=== PATIENT | female | born 1960 | race African-American/Black ===

== ENCOUNTER 2016-09-16 22:17 | Inpatient (IN) | payer OTHER ==
--- NOTE | 2016-09-16 23:56 | HP ---
CIWA Score - CIWA Score Nausea/Vomitin Muscle Tremors: 3 Anxiety: 3 Agitation: 3 Paroxysmal Sweats: 2 Orientation: 0-Oriented Tacttile Disturbances: 2-Mild Itch/Numbness/Burn Auditory Disturbances: 2-Mild Harshness/Frighten Visual Disturbances: 2-Mild Sensitivity Headache: 2-Mild CIWA-Ar Total Score: 22 Admission ROS BHS - HPI Chief Complaint: i need help to stop drinking alcohol and cocaine Allergies/Adverse Reactions: Allergies Allergy/AdvReac Type Severity Reaction Status Date / Time fish derived [Fish derived] Allergy Mild Hives Verified 09/17/16 02:26 No Known Drug Allergies Allergy Verified 09/17/16 02:26 NICOTINE PATCH Allergy Uncoded 09/17/16 02:26 History of Present Illness: this 56 years old female with alcohol and cocaine dependence,seeking detox,last treatment [facility] 11/16/15 to 11/20/15 syncope alcohol realted schizophrenia nicotine dependence glaucoma both eyes no significant period of sobriety - Ebola screening Have you traveled outside of the country in the last 21 days: No - Review of Systems Constitutional: Loss of Appetite, Malaise, Night Sweats, Changes in sleep, Weakness EENT: reports: Nose Congestion Respiratory: reports: No Symptoms reported Cardiac: reports: Palpitations GI: reports: Diarrhea, Nausea, Abdominal cramping : reports: No Symptoms Reported Musculoskeletal: reports: Back Pain, Muscle Pain Integumentary: reports: Dryness Neuro: reports: Headache, Tremors Endocrine: reports: No Symptoms Reported Hematology: reports: No Symptoms Reported Psychiatric: reports: Judgement Intact, Mood/Affect Appropiate, Orientated x3 ( schizophrenia) Patient History - Patient Medical History Hx Anemia: No Hx Asthma: Yes (Uses albuterol.) Hx Chronic Obstructive Pulmonary Disease (COPD): No Hx Cancer: No Hx Cardiac Disorders: No Hx Congestive Heart Failure: No Hx Hypertension: No Hx Hypercholesterolemia: No Hx Pacemaker: No HX Cerebrovascular Accident: No Hx Seizures: No Hx Dementia: No Hx Diabetes: No (Previous alcohol-related elevated blood sugar.) Hx Gastrointestinal Disorders: No Hx Liver Disease: No Hx Genitourinary Disorders: No Hx Sexually Transmitted Disorders: No Hx Renal Disease (ESRD): No Hx Thyroid Disease: No Hx Human Immunodeficiency Virus (HIV): No (last 04/03 negative) Hx Hepatitis C: No Hx Depression: Yes (On meds., See Psych.) Hx Suicide Attempt: No Hx Bipolar Disorder: No Hx Schizophrenia: Yes Other Medical History: no suicidal,no homicidal - Patient Surgical History Past Surgical History: Yes Hx Neurologic Surgery: No Hx Cataract Extraction: No Hx Cardiac Surgery: No Hx Lung Surgery: No Hx Breast Surgery: No Hx Breast Biopsy: No Hx Abdominal Surgery: No Hx Appendectomy: No Hx Cholecystectomy: No Hx Genitourinary Surgery: No Hx Section: Yes (X 3 IN 1984, 1997 AND 1998) Hx Orthopedic Surgery: No Hx Hysterectomy: No Anesthesia Reaction: No - PPD History Previous Implant?: Yes Documented Results: Positive w/o proof Date: 04/19/15 PPD to be Administered?: No - Reproductive History Patient is a Female of Child Bearing Age (11 -55 yrs old): Yes Last Menstrual Period: 10/16/14 Patient : No - Smoking Cessation Smoking history: Current every day smoker Have you smoked in the past 12 months: Yes Aproximately how many cigarettes per day: 6 Cigars Per Day: 0 Hx Chewing Tobacco Use: No Initiated information on smoking cessation: Yes 'Breaking Loose' booklet given: 09/17/16 - Substance & Tx. History Hx Alcohol Use: Yes Hx Substance Use: Yes Substance Use Type: Alcohol, Cocaine Hx Substance Use Treatment: Yes ([facility] 11/16/15 to 11/20/15) - Substances Abused Alcohol Route: Oral Frequency: Daily Amount used: 1/5th of vodka/2 of 6 packs of 12 ozs of beer Age of first use: 17 Date of Last Use: 09/16/16 Crack Route: Smoking Frequency: 3-6 times per week Amount used: 80$ Age of first use: 36 Date of Last Use: 09/17/16 Family Disease History - Family Disease History Family Disease History: Diabetes: Mother (HTN), Sister (bad drug problems), Heart Disease: Father (HTN,ALCOHOLIC), Mother, Other: Father, Sister Admission Physical Exam S - Vital Signs Vital Signs: Vital Signs Temperature 99.0 F 09/17/16 01:22 Pulse Rate 106 H 09/17/16 01:22 Respiratory Rate 20 09/17/16 01:22 Blood Pressure 135/92 09/17/16 01:22 O2 Sat by Pulse Oximetry (%) - Physical General Appearance: Yes: Moderate Distress, Tremorous, Irritable, Sweating, Anxious HEENTM: Yes: Hearing grossly Normal, Normal ENT Inspection, Pharynx Normal Respiratory: Yes: Lungs Clear, Normal Breath Sounds, No Respiratory Distress Neck: Yes: Within Normal Limits Breast: Yes: Breast Exam Deferred Cardiology: Yes: Within Normal Limits, Regular Rhythm, Regular Rate, S1, S2 Abdominal: Yes: Within Normal Limits, Normal Bowel Sounds, Flat, Soft, Increased Bowel Sounds Genitourinary: Yes: Within Normal Limits Back: Yes: Within Normal Limits Musculoskeletal: Yes: Back pain, Joint Stiffness, Muscle Pain Extremities: Yes: Within Normal Limits, Normal Range of Motion, Tremors Neurological: Yes: call center assistant II-XII NML intact, Fully Oriented, Alert, Motor Strength 5/5 Integumentary: Yes: Dry Lymphatic: Yes: Within Normal Limits - Diagnostic (1) Alcohol dependence with uncomplicated withdrawal Current Visit: No Status: Chronic (2) Asthma Current Visit: No Status: Chronic Qualifiers: Asthma severity: mild persistent Asthma complication type: uncomplicated Qualified Code(s): J45.30 - Mild persistent asthma, uncomplicated (3) Cocaine dependence Current Visit: No Status: Chronic (4) Glaucoma Current Visit: No Status: Chronic Qualifiers: Primary angle closure glaucoma type: unspecified type Laterality: bilateral Glaucoma stage: stage unspecified (5) Nicotine dependence Current Visit: No Status: Chronic Qualifiers: Nicotine product type: cigarettes Substance use status: uncomplicated Qualified Code(s): F17.210 - Nicotine dependence, cigarettes, uncomplicated (6) PPD positive, treated Current Visit: No Status: Chronic (7) Syncope Current Visit: Yes Status: Acute (8) Schizophrenia Current Visit: Yes Status: Acute Cleared for Admission [facility] - Detox or Rehab [facility] Level of Care: Medically Managed Detox Regimen/Protocol: Librium [facility] Breath Alcohol Content Breath Alcohol Content: 0.094 Vital Signs - Vital Signs Vital Signs Refused: No Temperature: 99.0 F Temperature Source: Oral Pulse Rate: 106 Respiratory Rate: 20 Blood Pressure: 135/92 BP Location: Left Arm Blood Pressure Position: Sitting - Height Height: 5 ft 7 in - Weight Weight: 185 lb Body Mass Index (BMI): 29.0 Urine Pregancy Test - Test Device Lot Number: [id number] Expiration Date: 01/14/18 - Control Horizontal Line in Upper Control Window?: Yes - Result Urine Test Results: Negative- NO Line Present Urine Drug Screen - Test Device Lot Number: [id number] Expiration Date: 05/15/18 - Control Is Test Valid: Yes - Results Drug Screen Negative: No Urine Drug Screen Results: MIHAELA-Cocaine, TCA-Tricyclic Antidepress
[2016-09-17 01:22] VITALS: BMI 29.0
[2016-09-17] MEDS ORDERED: ACETAMINOPHEN 325 MG TABLET (FP) PO PRN (01:24)
[2016-09-17] MEDS ORDERED: LOPERAMIDE HCL 2 MG CAPSULE PO PRN (01:24)
[2016-09-17] MEDS ORDERED: hydrOXYzine PAMOATE 50 MG CAPSULE (FP) PO PRN (01:24)
[2016-09-17] MEDS ORDERED: MAG HYDROX/AL HYDROX/SIMETH 30 ML UNIT-DOSE CUP PO PRN (01:24)
[2016-09-17] MEDS ORDERED: MAGNESIUM CITRATE 300 ML BOTTLE PO PRN (01:24)
[2016-09-17] MEDS ORDERED: guaiFENesin/D-METHORPHAN HB 10 ML UNIT-DOSE CUPS PO PRN (01:24)
[2016-09-17] MEDS ORDERED: chlordiazePOXIDE HCL 25 MG CAPSULE PO ONE (01:24)
[2016-09-17] MEDS ORDERED: MAGNESIUM HYDROX 2400MG/30ML ORAL SUSPENSION 30 ML CUP PO PRN (01:24)
[2016-09-17] MEDS ORDERED: chlordiazePOXIDE HCL 25 MG CAPSULE PO PRN (01:24)
[2016-09-17] MEDS ORDERED: IBUPROFEN 400 MG TABLET (FP) PO PRN (01:24)
[2016-09-17] MEDS ORDERED: P-EPHED 60MG/TRIPROLIDI 2.5MG TABLET PO PRN (01:24)
[2016-09-17] MEDS ORDERED: NICOTINE POLACRILEX 2 MG GUM BC PRN (01:24)
[2016-09-17] MEDS ORDERED: MENTHOL/PHENOL 1 EACH UD MM PRN (01:24)
[2016-09-17] MEDS ORDERED: ALBUTEROL SO4 6.7 GM HFA INHALER IH PRN (01:27)
[2016-09-17] MEDS: diphenhydrAMINE HCL 50 MG CAPSULE PO PRN (02:33)
[2016-09-17] MEDS: BRIMONIDINE TARTRATE 0.15% OPHTHALMIC 5 ML BOTTLE OU SCH ×3 (06:42→22:51)
[2016-09-17] MEDS: chlordiazePOXIDE HCL 25 MG CAPSULE PO SCH ×4 (08:06→22:45)
--- NOTE | 2016-09-17 08:58 | CONSULT ---
[facility] Psychiatric Consult - Data Date of interview: 09/17/16 Admission source: [facility] Identifying data: This is 56 years old female with history of Schizoaffective disorder intoxicated with: Alcohol, Cocaine and Nicotine Substance Abuse History: - Smoking Cessation. Smoking history: Current every day smoker. Have you smoked in the past 12 months: Yes. Aproximately how many cigarettes per day: 6. Cigars Per Day: 0. Hx Chewing Tobacco Use: No. Initiated information on smoking cessation: Yes. 'Breaking Loose' booklet given : 09/17/16. - Substance & Tx. History. Hx Alcohol Use: Yes. Hx Substance Use : Yes. Substance Use Type: Alcohol, Cocaine. Hx Substance Use Treatment: Yes ( [facility] 11/16/15 to 11/20/15). - Substances Abused. Alcohol. Route: Oral. Frequency: Daily. Amount used: 1/5th of vodka/2 of 6 packs of 12 ozs of beer. Age of first use: 17. Date of Last Use: 09/16/16. Crack. Route: Smoking. Frequency: 3-6 times per week. Amount used: 80$. Age of first use: 36. Date of Last Use: 09/17/16 Medical History: Syncope history, Asthma, PPD+ History, Weight loss, GERD Psychiatric History: Patient reprots to carry Schizoaffective disorder, reports most recent psychioatric admnission 6 months ago at [facility], reports taking prior to admission: Zoloft 100mg poqd. Seroquel 200mg po bid. Remeron 45mg po qhs. As per computer has been on Depakote as well in the past Physical/Sexual Abuse/Trauma History: Denies Additional Comment: Zoloft 100mg poqd. Seroquel 200mg po bid. Remeron 45mg po qhs Mental Status Exam - Mental Status Exam Alert and Oriented to: Person Cognitive Function: Fair Patient Appearance: Unkempt Mood: Anxious Affect: Labile Patient Behavior: Impulsive Speech Pattern: Excessive Voice Loudness: Mildly Loud Thought Process: Circumstantial Thought Disorder: Being Controlled Hallucinations: Denies Suicidal Ideation: Denies Homicidal Ideation: Denies Insight/Judgement: Fair Sleep: Difficulty falling asleep Appetite: Weight gain Muscle strength/Tone: Mild Hypotonicity Gait/Station: Normal Additional Comments: Zoloft 100mg poqd. Seroquel 200mg po bid. Remeron 45mg po qhs Psychiatric Findings - Problem List ([place] 1, 2,3) (1) Schizophrenia Current Visit: Yes Status: Acute (2) Substance induced mood disorder Current Visit: No Status: Acute (3) Substance-induced sleep disorder Current Visit: No Status: Acute (4) Alcohol dependence with uncomplicated withdrawal Current Visit: No Status: Chronic (5) Cocaine dependence Current Visit: No Status: Chronic (6) Nicotine dependence Current Visit: No Status: Chronic Qualifiers: Nicotine product type: cigarettes Substance use status: uncomplicated Qualified Code(s): F17.210 - Nicotine dependence, cigarettes, uncomplicated (7) Schizoaffective disorder Current Visit: No Status: Chronic Comment: Historical diagnosis. - Initial Treatment Plan Initial Treatment Plan: Zoloft 100mg poqd. Seroquel 200mg po bid. Remeron 45mg po qhs
[2016-09-17] MEDS ORDERED: BRIMONIDINE TARTRATE 0.15% OPHTHALMIC 5 ML BOTTLE OU ONE (10:00)
[2016-09-17 10:06] LABS: MCH 27.1 pg (25.7-33.7); MCHC 31.9 g/dl (32.0-36.0); MEAN CELL VOLUME 84.8 fl (80-96); MEAN PLT VOLUME 9.5 fl (7.5-11.1); PLATELET COUNT 232 K/MM3 (134-434); RDW 15.3 % (11.6-15.6); WHITE BLOOD COUNT 12.7 K/mm3 (4.0-10.0)
[2016-09-17 10:17] LABS: ALBUMIN 3.9 g/dl (3.4-5.0); ALK PHOS 171 U/L (45-117); ANION GAP 4 (8-16); BILIRUBIN,TOTAL 0.6 mg/dL (0.2-1.0); CALCIUM 9.8 mg/dL (8.5-10.1); CO2 32 mmol/L (21-32); CREATININE 0.9 mg/dL (0.55-1.02); GLUCOSE,RANDOM 134 mg/dL (74-106); SGOT/AST 10 U/L (15-37); SGPT/ALT 19 U/L (12-78); TOT PROT 7.4 g/dl (6.4-8.2)
[2016-09-17] MEDS: PRENATAL VITAMINS W/ FOLIC ACID TABLET (FP) PO SCH (10:55)
[2016-09-17] MEDS: QUEtiapine FUMARATE 200 MG TABLET PO SCH ×2 (10:56→22:45)
[2016-09-17] MEDS: SERTRALINE HCL 50 MG TABLET (FP) PO SCH (10:56)
--- NOTE | 2016-09-17 11:30 | EKG ---
Test Reason : Blood Pressure : / mmHG Vent. Rate : 095 BPM Atrial Rate : 095 BPM P-R Int : 116 ms QRS Dur : 086 ms QT Int : 364 ms P-R-T Axes : 000 142 116 degrees QTc Int : 457 ms NORMAL SINUS RHYTHM LEFT POSTERIOR FASCICULAR BLOCK MINIMAL VOLTAGE CRITERIA FOR LVH, MAY BE NORMAL VARIANT ABNORMAL ECG NO PREVIOUS ECGS AVAILABLE Confirmed by DANIELE LOVING, TIMOTHY ([id number]) on 09/17/2016 11:29:36 AM Referred By: Zafar Biggs Confirmed By:TIMOTHY SANABRIA MD
[2016-09-17] MEDS ORDERED: PNEUMOCOCCAL 23 VACCINE 0.5 ML VIAL IM ONE (12:00)
[2016-09-17] MEDS ORDERED: PNEUMOC 13-VAL CONJ-DIP CRM/PF 0.5 ML DISP.SYRIN IM ONE (12:00)
--- NOTE | 2016-09-17 12:10 | PN ---
S CIWA - CIWA Score Nausea/Vomitin-No Nausea/No Vomiting Muscle Tremors: 4-Moderate,w/Arms Extend Anxiety: 3 Agitation: 4-Moderately Restless Paroxysmal Sweats: 3 Orientation: 0-Oriented Tacttile Disturbances: 0-None Auditory Disturbances: 0-None Visual Disturbances: 0-None Headache: 1-Very Mild CIWA-Ar Total Score: 15 BHS Progress Note (SOAP) Subjective: sleepy sweats interrupted sleep agitation irritable Objective: 09/17/16 12:07 Vital Signs Temperature 97.2 09/17/16 10:00 Pulse Rate 79 09/17/16 10:00 Respiratory Rate 20 09/17/16 10:00 Blood Pressure 113/74 09/17/16 10:00 O2 Sat by Pulse Oximetry (%) Laboratory Tests 09/17/16 09/17/16 07:30 07:30 WBC 12.7 H D RBC 5.25 H Hgb 14.2 D Hct 44.6 D MCV 84.8 MCH 27.1 MCHC 31.9 L RDW 15.3 Plt Count 232 D MPV 9.5 Sodium 138 Potassium 4.7 Chloride 102 Carbon Dioxide 32 Anion Gap 4 L BUN 14 D Creatinine 0.9 D Creat Clearance w eGFR > 60 Random Glucose 134 H Calcium 9.8 Total Bilirubin 0.6 D AST 10 L D ALT 19 Alkaline Phosphatase 171 H D Total Protein 7.4 Albumin 3.9 labs pending awake/alert lying in bed no acute distress Assessment: 09/17/16 12:09 withdrawal sx Plan: continue detox increase fluids labs pending chest x-ray ordered for tomorrow
[2016-09-17] MEDS: THIAMINE HCL 100 MG TABLET (FP) PO SCH (22:45)
[2016-09-17] MEDS: MIRTAZAPINE 15 MG TABLET (FP) PO SCH (22:46)
[2016-09-17] MEDS: LATANOPROST 0.005% OPHTH SOLN 2.5ML BOTTLE OU SCH (22:51)
[2016-09-18] MEDS: chlordiazePOXIDE HCL 25 MG CAPSULE PO SCH ×4 (06:03→22:52)
[2016-09-18] MEDS: BRIMONIDINE TARTRATE 0.15% OPHTHALMIC 5 ML BOTTLE OU SCH ×4 (06:17→22:52)
[2016-09-18] MEDS ORDERED: PNEUMOCOCCAL 23 VACCINE 0.5 ML VIAL IM ONE (12:00)
--- NOTE | 2016-09-18 12:54 | PN ---
[facility] CIWA - CIWA Score Nausea/Vomitin-No Nausea/No Vomiting Muscle Tremors: 3 Anxiety: 2 Agitation: 3 Paroxysmal Sweats: 3 Orientation: 0-Oriented Tacttile Disturbances: 0-None Auditory Disturbances: 0-None Visual Disturbances: 0-None Headache: 0-None Present CIWA-Ar Total Score: 11 S Progress Note (SOAP) Subjective: irritable agitation sweats interrupted sleep Objective: 09/18/16 12:54 Vital Signs Temperature 96.1 F L 09/18/16 10:00 Pulse Rate 85 09/18/16 10:00 Respiratory Rate 18 09/18/16 10:00 Blood Pressure 102/55 09/18/16 10:00 O2 Sat by Pulse Oximetry (%) Laboratory Tests 09/17/16 09/17/16 09/17/16 07:30 07:30 07:30 WBC 12.7 H D RBC 5.25 H Hgb 14.2 D Hct 44.6 D MCV 84.8 MCH 27.1 MCHC 31.9 L RDW 15.3 Plt Count 232 D MPV 9.5 Sodium 138 Potassium 4.7 Chloride 102 Carbon Dioxide 32 Anion Gap 4 L BUN 14 D Creatinine 0.9 D Creat Clearance w eGFR > 60 Random Glucose 134 H Calcium 9.8 Total Bilirubin 0.6 D AST 10 L D ALT 19 Alkaline Phosphatase 171 H D Total Protein 7.4 Albumin 3.9 RPR Titer Nonreactive u/a pending awake/alert ambulating no acute distress Assessment: 09/18/16 12:56 withdrawal sx Plan: continue detox increase fluids
[2016-09-18] MEDS: SERTRALINE HCL 50 MG TABLET (FP) PO SCH (13:21)
[2016-09-18] MEDS: QUEtiapine FUMARATE 200 MG TABLET PO SCH ×2 (13:21→22:52)
[2016-09-18] MEDS: PRENATAL VITAMINS W/ FOLIC ACID TABLET (FP) PO SCH (13:22)
[2016-09-18 22:09] LABS: URINE APPEARANCE CLEAR; URINE BILIRUBIN NEGATIVE (NEGATIVE); URINE BLOOD NEGATIVE (NEGATIVE); URINE COLOR YELLOW; URINE GLUCOSE (UA) NEGATIVE (NEGATIVE); URINE KETONE NEGATIVE (NEGATIVE); URINE LEUK ESTERASE NEGATIVE (NEGATIVE); URINE NITRITE NEGATIVE (NEGATIVE); URINE PROTEIN NEGATIVE (NEGATIVE); URINE UROBILINOGEN NEGATIVE mg/dL (0.2-1.0)
[2016-09-18] MEDS: LATANOPROST 0.005% OPHTH SOLN 2.5ML BOTTLE OU SCH (22:52)
[2016-09-18] MEDS: MIRTAZAPINE 15 MG TABLET (FP) PO SCH (22:53)
[2016-09-18] MEDS: THIAMINE HCL 100 MG TABLET (FP) PO SCH (22:53)
[2016-09-19] MEDS: chlordiazePOXIDE 5 MG CAPSULE PO SCH ×4 (06:56→22:39)
[2016-09-19] MEDS: BRIMONIDINE TARTRATE 0.15% OPHTHALMIC 5 ML BOTTLE OU SCH ×3 (06:58→22:38)
[2016-09-19] MEDS: QUEtiapine FUMARATE 200 MG TABLET PO SCH ×2 (11:17→22:38)
[2016-09-19] MEDS: SERTRALINE HCL 50 MG TABLET (FP) PO SCH (11:17)
[2016-09-19] MEDS: PRENATAL VITAMINS W/ FOLIC ACID TABLET (FP) PO SCH (11:17)
--- NOTE | 2016-09-19 14:31 | PN ---
S Progress Note (SOAP) Subjective: ALERT,IRRITABLE,ANXIOUS,INTERRUPTED SLEEP, Objective: 09/19/16 14:30 Vital Signs Temperature 99.0 F 09/19/16 14:29 Pulse Rate 106 H 09/19/16 14:29 Respiratory Rate 20 09/19/16 14:29 Blood Pressure 135/92 09/19/16 14:29 O2 Sat by Pulse Oximetry (%) Assessment: 09/19/16 14:30 WITHDRAWAL SYMPTOM Plan: CONTINUE DETOX
[2016-09-19] MEDS: LATANOPROST 0.005% OPHTH SOLN 2.5ML BOTTLE OU SCH (22:38)
[2016-09-19] MEDS: MIRTAZAPINE 15 MG TABLET (FP) PO SCH (22:38)
[2016-09-19] MEDS: THIAMINE HCL 100 MG TABLET (FP) PO SCH (22:39)
[2016-09-20] MEDS: diphenhydrAMINE HCL 50 MG CAPSULE PO PRN (01:01)
[2016-09-20] MEDS: BRIMONIDINE TARTRATE 0.15% OPHTHALMIC 5 ML BOTTLE OU SCH ×3 (06:30→22:54)
[2016-09-20] MEDS: chlordiazePOXIDE HCL 10 MG CAPSULE PO SCH ×4 (06:30→22:54)
[2016-09-20] MEDS: QUEtiapine FUMARATE 200 MG TABLET PO SCH ×2 (10:45→22:56)
[2016-09-20] MEDS: SERTRALINE HCL 50 MG TABLET (FP) PO SCH (10:45)
[2016-09-20] MEDS: PRENATAL VITAMINS W/ FOLIC ACID TABLET (FP) PO SCH (10:45)
--- NOTE | 2016-09-20 14:05 | PN ---
S Progress Note (SOAP) Subjective: ALERT,IRRITABLE,INTERRUPTED SLEEP Objective: 09/20/16 14:04 Vital Signs Temperature 98.1 F 09/20/16 10:44 Pulse Rate 84 09/20/16 10:44 Respiratory Rate 20 09/20/16 10:44 Blood Pressure 125/85 09/20/16 10:44 O2 Sat by Pulse Oximetry (%) Assessment: 09/20/16 14:04 WITHDRAWAL SYMPTOM Plan: CONTINUE DETOX,DISCHARGE IN AM
[2016-09-20] MEDS: MIRTAZAPINE 15 MG TABLET (FP) PO SCH (22:55)
[2016-09-20] MEDS: LATANOPROST 0.005% OPHTH SOLN 2.5ML BOTTLE OU SCH (22:56)
[2016-09-20] MEDS: THIAMINE HCL 100 MG TABLET (FP) PO SCH (22:56)
[2016-09-21] MEDS: BRIMONIDINE TARTRATE 0.15% OPHTHALMIC 5 ML BOTTLE OU SCH (05:30)
--- NOTE | 2016-09-21 09:21 | DS ---
[facility] Detox Discharge Summary Admission Date: 09/17/16 Discharge Date: 09/21/16 - History Present History: Alcohol Dependence, Cocaine Dependence - Physical Exam Results Vital Signs: Vital Signs Temperature 98 F 09/21/16 06:44 Pulse Rate 80 09/21/16 06:44 Respiratory Rate 18 09/21/16 06:44 Blood Pressure 106/57 09/21/16 06:44 O2 Sat by Pulse Oximetry (%) - Treatment Hospital Course: Detox Protocol Followed, Detoxed Safely, Responded well, Discharged Condition Good, Rehab Referral Accepted - Medication Discharge Medications: Ambulatory Orders Quetiapine Fumarate [Seroquel -] 200 mg PO BID #60 04/18/15 Mirtazapine [Remeron -] 45 mg PO HS #30 tablet 06/06/15 Divalproex Sodium 1,000 mg PO BID 11/16/15 Sertraline HCl [Zoloft -] 100 mg PO DAILY 11/16/15 Albuterol Sulfate Inhaler - [Ventolin HFA Inhaler -] 2 puff IH Q4H PRN #1 cartridge 11/20/15 Brimonidine Tartrate [Alphagan 0.15% -] 1 drop OU TID #1 drops 11/20/15 Latanoprost 0.005% Eye Drops [Xalatan 0.005% Eye Drops -] 1 drop OU HS #1 drops 11/20/15 Mirtazapine [Remeron -] 45 mg PO HS #30 tablet 09/17/16 Quetiapine Fumarate [Seroquel -] 200 mg PO BID #60 tab 09/17/16 Sertraline HCl [Zoloft -] 100 mg PO DAILY #30 tablet 09/17/16 - Diagnosis (1) Schizophrenia Current Visit: Yes Status: Acute (2) Syncope Current Visit: Yes Status: Acute (3) Substance induced mood disorder Current Visit: No Status: Acute (4) Substance-induced sleep disorder Current Visit: No Status: Acute (5) Alcohol dependence with uncomplicated withdrawal Current Visit: Yes Status: Chronic (6) Asthma Current Visit: Yes Status: Chronic Qualifiers: Asthma severity: mild persistent Asthma complication type: uncomplicated Qualified Code(s): J45.30 - Mild persistent asthma, uncomplicated (7) Cocaine dependence Current Visit: Yes Status: Chronic (8) Glaucoma Current Visit: No Status: Chronic Qualifiers: Primary angle closure glaucoma type: unspecified type Laterality: bilateral Glaucoma stage: stage unspecified (9) Nicotine dependence Current Visit: Yes Status: Chronic Qualifiers: Nicotine product type: cigarettes Substance use status: uncomplicated Qualified Code(s): F17.210 - Nicotine dependence, cigarettes, uncomplicated (10) PPD positive, treated Current Visit: No Status: Chronic (11) Schizoaffective disorder Current Visit: No Status: Chronic (12) bipolar disorder Current Visit: No Status: Chronic - AMA Did Patient Leave Against Medical Advice: No
[2016-09-21] MEDS: QUEtiapine FUMARATE 200 MG TABLET PO SCH (09:32)
[2016-09-21] MEDS: SERTRALINE HCL 50 MG TABLET (FP) PO SCH (09:32)
[2016-09-21 09:34] VITALS: BP 150/88; PULSE 86; TEMP 97.9
== END 2016-09-21 11:38 | disposition home or self-care (01) | DRG 774 ==
LOC: YASAS 22:17 → Y6N 09-17 01:33
PROVIDERS: ADMIT Internal Medicine; ATTEND Internal Medicine
PROC: HZ2ZZZZ Detoxification Services for Substance Abuse Treatment (ICD-10-PCS; principal; 2016-09-17)
DX: F10.230 Alcohol dependence with withdrawal, uncomplicated (principal); F14.20 Cocaine dependence, uncomplicated; F17.210 Nicotine dependence, cigarettes, uncomplicated; F25.9 Schizoaffective disorder, unspecified; F20.0 Paranoid schizophrenia; F19.24 Other psychoactive substance dependence with psychoactive substance-induced mood disorder; F19.282 Other psychoactive substance dependence with psychoactive substance-induced sleep disorder; F31.9 Bipolar disorder, unspecified; J45.30 Mild persistent asthma, uncomplicated; H40.9 Unspecified glaucoma; R76.11 Nonspecific reaction to tuberculin skin test without active tuberculosis; Z86.79 Personal history of other diseases of the circulatory system
CPT/HCPCS: 36415; 71020-TC; 80053; 81003; 85027; 86593; 90732; 93005; 93010; G0009

== ENCOUNTER 2017-05-04 11:51 | Inpatient (IN) | payer OTHER ==
[2017-05-04 13:39] VITALS: BMI 30.7
--- NOTE | 2017-05-04 14:39 | HP ---
CIWA Score - CIWA Score Nausea/Vomitin-Mild Nausea/No Vomiting Muscle Tremors: 4-Moderate,w/Arms Extend Anxiety: 4-Mod. Anxious/Guarded Agitation: 4-Moderately Restless Paroxysmal Sweats: 1-Minimal Palms Moist Orientation: 1-Uncertain about Date Tacttile Disturbances: 1-Very Mild Itch/Numbness Auditory Disturbances: 0-None Visual Disturbances: 0-None Headache: 2-Mild CIWA-Ar Total Score: 18 Admission ROS S - HPI Chief Complaint: withdrawal sx Allergies/Adverse Reactions: Allergies Allergy/AdvReac Type Severity Reaction Status Date / Time fish derived [Fish derived] Allergy Mild Hives Verified 05/04/17 14:36 No Known Drug Allergies Allergy Verified 05/04/17 14:36 NICOTINE PATCH Allergy Severe Rash Uncoded 05/04/17 14:36 History of Present Illness: 57 years old female with long history of alcohol nicotine dependent has hypertension asthma chronic bronchitis positive ppd and schizophrenia is admitted to detox longest sobriety one years Exam Limitations: No Limitations - Ebola screening Have you traveled outside of the country in the last 21 days: No Have you had contact with anyone from an Ebola affected area: No Have you been sick,other than usual withdrawal symptoms: No Do you have a fever: No - Review of Systems Constitutional: Changes in sleep, Weight Stable EENT: reports: Blurred Vision (glaucoma bilaterally) Respiratory: reports: SOB with Exertion, Productive cough Cardiac: reports: No Symptoms Reported GI: reports: No Symptoms Reported : reports: No Symptoms Reported Musculoskeletal: reports: No Symptoms Reported, Muscle Weakness (both legs) Integumentary: reports: No Symptoms Reported Neuro: reports: Tremors Endocrine: reports: No Symptoms Reported Hematology: reports: No Symptoms Reported Psychiatric: reports: Judgement Intact, Anxious, Depressed Other Systems: Reviewed and Negative Patient History - Patient Medical History Hx Anemia: No Hx Asthma: Yes (Uses albuterol.) Hx Chronic Obstructive Pulmonary Disease (COPD): No Hx Cancer: No Hx Cardiac Disorders: No Hx Congestive Heart Failure: No Hx Hypertension: No Hx Hypercholesterolemia: No Hx Pacemaker: No HX Cerebrovascular Accident: No Hx Seizures: No Hx Dementia: No Hx Diabetes: No (Previous alcohol-related elevated blood sugar.) Hx Gastrointestinal Disorders: No Hx Liver Disease: No Hx Genitourinary Disorders: No Hx Sexually Transmitted Disorders: No Hx Renal Disease (ESRD): No Hx Thyroid Disease: No Hx Human Immunodeficiency Virus (HIV): No (last 04/03 negative) Hx Hepatitis C: No Hx Depression: Yes (On meds., See Psych.) Hx Suicide Attempt: No Hx Bipolar Disorder: No Hx Schizophrenia: Yes - Patient Surgical History Past Surgical History: Yes Hx Neurologic Surgery: No Hx Cataract Extraction: No Hx Cardiac Surgery: No Hx Lung Surgery: No Hx Breast Surgery: No Hx Breast Biopsy: No Hx Abdominal Surgery: No Hx Appendectomy: No Hx Cholecystectomy: No Hx Genitourinary Surgery: No Hx Section: Yes (X 3 IN 1984, 1997 AND 1998) Hx Orthopedic Surgery: No Hx Hysterectomy: No Anesthesia Reaction: No - PPD History Previous Implant?: Yes Documented Results: Positive w/proof Implanted On Prior [facility] Admission?: No Date: 10/04/16 PPD to be Administered?: No - Reproductive History Patient is a Female of Child Bearing Age (11 -55 yrs old): No Last Menstrual Period: 10/16/14 Patient : No - Smoking Cessation Smoking history: Current every day smoker Have you smoked in the past 12 months: Yes Aproximately how many cigarettes per day: 6 Cigars Per Day: 0 Hx Chewing Tobacco Use: No Initiated information on smoking cessation: Yes 'Breaking Loose' booklet given: 05/04/17 - Substance & Tx. History Hx Alcohol Use: Yes Hx Substance Use: Yes Substance Use Type: Cocaine Hx Substance Use Treatment: Yes (09/2016 [facility]) - Substances Abused Crack Route: Smoking Frequency: 1-2 times per week Amount used: $100 Age of first use: 36 Date of Last Use: 05/03/17 Alcohol-beer Route: Oral Frequency: Daily Amount used: 1-6 pk. Age of first use: 17 Date of Last Use: 05/04/17 Family Disease History - Family Disease History Family Disease History: Diabetes: Mother (HTN), Sister (bad drug problems), Heart Disease: Father (HTN,ALCOHOLIC), Mother, Other: Father, Sister Admission Physical Exam S - Vital Signs Vital Signs: Vital Signs - 24 hr 05/04/17 13:38 Temperature 96.1 F L Pulse Rate 86 Respiratory 20 Rate Blood Pressure 154/104 - Physical General Appearance: Yes: Appropriately Dressed, Moderate Distress, Obese, Tremorous, Irritable, Sweating, Anxious HEENTM: Yes: Hearing grossly Normal, Normal ENT Inspection, Normocephalic, Normal Voice Respiratory: Yes: Chest Non-Tender, No Respiratory Distress, No Accessory Muscle Use, Wheezing Neck: Yes: Supple, Trachea in good position Breast: Yes: Breasts Symetrical Cardiology: Yes: Regular Rhythm, Regular Rate, S1, S2 Abdominal: Yes: Non Tender, Soft Genitourinary: Yes: Within Normal Limits Back: Yes: CVA Tenderness (L) Musculoskeletal: Yes: full range of Motion, Gait Steady, Muscle weakness (both legs) Extremities: Yes: Non-Tender, Tremors Neurological: Yes: Alert, Motor Strength 5/5, Normal Response, Depressed Affect Integumentary: Yes: Warm Lymphatic: Yes: Within Normal Limits - Diagnostic (1) Schizophrenia Current Visit: Yes Status: Suspected Qualifiers: Schizophrenia type: unspecified Qualified Code(s): F20.9 - Schizophrenia, unspecified (2) Alcohol dependence with uncomplicated withdrawal Current Visit: Yes Status: Acute (3) Asthma Current Visit: Yes Status: Chronic Qualifiers: Asthma severity: mild Asthma complication type: uncomplicated (4) Glaucoma Current Visit: Yes Status: Chronic Qualifiers: Primary angle closure glaucoma type: unspecified type Laterality: bilateral Glaucoma stage: stage unspecified (5) Nicotine dependence Current Visit: Yes Status: Acute Qualifiers: Nicotine product type: cigarettes Substance use status: in withdrawal Qualified Code(s): F17.213 - Nicotine dependence, cigarettes, with withdrawal (6) PPD positive, treated Current Visit: No Status: Resolved Cleared for Admission [facility] - Detox or Rehab [facility] Level of Care: Medically Managed Detox Regimen/Protocol: Librium [facility] Breath Alcohol Content Breath Alcohol Content: 0.055 Urine Pregancy Test - Result Urine Test Results: Negative- NO Line Present Urine Drug Screen - Control Is Test Valid: Yes - Results Drug Screen Negative: No Urine Drug Screen Results: MIHAELA-Cocaine
[2017-05-04] MEDS ORDERED: MENTHOL/PHENOL 1 EACH UD MM PRN (14:45)
[2017-05-04] MEDS ORDERED: MAGNESIUM HYDROX 2400MG/30ML ORAL SUSPENSION 30 ML CUP PO PRN (14:45)
[2017-05-04] MEDS ORDERED: MAGNESIUM CITRATE 300 ML BOTTLE PO PRN (14:45)
[2017-05-04] MEDS ORDERED: LOPERAMIDE HCL 2 MG CAPSULE PO PRN (14:45)
[2017-05-04] MEDS ORDERED: NICOTINE POLACRILEX 2 MG GUM BC PRN (14:45)
[2017-05-04] MEDS ORDERED: ACETAMINOPHEN 325 MG TABLET (FP) PO PRN (14:45)
[2017-05-04] MEDS ORDERED: P-EPHED 60MG/TRIPROLIDI 2.5MG TABLET PO PRN (14:45)
[2017-05-04] MEDS ORDERED: MAG HYDROX/AL HYDROX/SIMETH 30 ML UNIT-DOSE CUP PO PRN (14:45)
[2017-05-04] MEDS ORDERED: chlordiazePOXIDE HCL 25 MG CAPSULE PO PRN (14:45)
[2017-05-04] MEDS ORDERED: guaiFENesin/D-METHORPHAN HB 10 ML UNIT-DOSE CUPS PO PRN (14:45)
[2017-05-04] MEDS ORDERED: ALBUTEROL SO4 18 GM HFA INHALER IH PRN (14:47)
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
[2017-05-04] MEDS ORDERED: cloNIDine HCL 0.1 MG TABLET PO ONE (19:08)
[2017-05-04] MEDS ORDERED: MIRTAZAPINE 15 MG TABLET (FP) PO SCH (22:00)
[2017-05-04] MEDS: THIAMINE HCL 100 MG TABLET (FP) PO SCH (22:17)
[2017-05-04] MEDS: BRIMONIDINE TARTRATE 0.15% OPHTHALMIC 5 ML BOTTLE OU SCH (22:18)
[2017-05-04] MEDS: QUEtiapine FUMARATE 200 MG TABLET PO SCH (22:19)
[2017-05-04] MEDS: NAPROXEN 500 MG TABLET (FP) PO PRN (22:19)
[2017-05-04] MEDS: MELATONIN 5 MG TABLETS PO SCH (22:19)
[2017-05-04] MEDS: MIRTAZAPINE 30 MG TABLET (FP) PO SCH (22:19)
[2017-05-04] MEDS: chlordiazePOXIDE HCL 25 MG CAPSULE PO SCH (22:19)
[2017-05-04] MEDS: LATANOPROST 0.005% OPHTH SOLN 2.5ML BOTTLE OU SCH (22:20)
[2017-05-05 01:43] LABS: URINE APPEARANCE CLEAR; URINE BILIRUBIN NEGATIVE (NEGATIVE); URINE BLOOD NEGATIVE (NEGATIVE); URINE COLOR STRAW; URINE GLUCOSE (UA) NEGATIVE (NEGATIVE); URINE KETONE NEGATIVE (NEGATIVE); URINE LEUK ESTERASE NEGATIVE (NEGATIVE); URINE NITRITE NEGATIVE (NEGATIVE); URINE PROTEIN NEGATIVE (NEGATIVE); URINE UROBILINOGEN NEGATIVE mg/dL (0.2-1.0)
[2017-05-05] MEDS: chlordiazePOXIDE HCL 25 MG CAPSULE PO SCH ×4 (06:03→23:07)
[2017-05-05] MEDS: BRIMONIDINE TARTRATE 0.15% OPHTHALMIC 5 ML BOTTLE OU SCH ×3 (06:03→23:08)
--- NOTE | 2017-05-05 09:51 | PN ---
[facility] CIWA - CIWA Score Nausea/Vomitin-Mild Nausea/No Vomiting Muscle Tremors: 4-Moderate,w/Arms Extend Anxiety: 4-Mod. Anxious/Guarded Agitation: 4-Moderately Restless Paroxysmal Sweats: 1-Minimal Palms Moist Orientation: 0-Oriented Tacttile Disturbances: 1-Very Mild Itch/Numbness Auditory Disturbances: 0-None Visual Disturbances: 0-None Headache: 0-None Present CIWA-Ar Total Score: 15 BHS Progress Note (SOAP) Subjective: sweat tremor anxiety restlessness gi upset sleeplessness Objective: 05/05/17 09:50 Vital Signs Temperature 97.2 F L 05/05/17 06:00 Pulse Rate 81 05/05/17 06:00 Respiratory Rate 18 05/05/17 06:00 Blood Pressure 109/74 05/05/17 06:00 O2 Sat by Pulse Oximetry (%) Laboratory Last Values Urine Color Straw 05/04/17 22:59 Urine Appearance Clear 05/04/17 22:59 Urine pH 5.0 (5.0-8.0) 05/04/17 22:59 Ur Specific [place] 1.004 (1.001-1.035) 05/04/17 22:59 Urine Protein Negative (NEGATIVE) 05/04/17 22:59 Urine Glucose (UA) Negative (NEGATIVE) 05/04/17 22:59 Urine Ketones Negative (NEGATIVE) 05/04/17 22:59 Urine Blood Negative (NEGATIVE) 05/04/17 22:59 Urine Nitrite Negative (NEGATIVE) 05/04/17 22:59 Urine Bilirubin Negative (NEGATIVE) 05/04/17 22:59 Urine Urobilinogen Negative mg/dL (0.2-1.0) 05/04/17 22:59 Ur Leukocyte Esterase Negative (NEGATIVE) 05/04/17 22:59 lab noted Assessment: 05/05/17 09:50 withdrawal sx Plan: continue detox
--- NOTE | 2017-05-05 09:59 | EKG ---
Test Reason : Blood Pressure : / mmHG Vent. Rate : 084 BPM Atrial Rate : 084 BPM P-R Int : 112 ms QRS Dur : 094 ms QT Int : 388 ms P-R-T Axes : 069 075 051 degrees QTc Int : 458 ms NORMAL SINUS RHYTHM RIGHT ATRIAL ENLARGEMENT MINIMAL VOLTAGE CRITERIA FOR LVH, MAY BE NORMAL VARIANT NONSPECIFIC ST ABNORMALITY ABNORMAL ECG WHEN COMPARED WITH ECG OF 17-SEP-2016 01:20, NONSPECIFIC T WAVE ABNORMALITY NO LONGER EVIDENT IN LATERAL LEADS Confirmed by DEO TADEO MD ([id number]) on 05/05/2017 9:59:09 AM Referred By: Confirmed By:DEO TADEO MD
[2017-05-05 10:11] LABS: HEMOGLOBIN 14.3 GM/dL (10.7-15.3); MCHC 32.6 g/dl (32.0-36.0); MEAN CELL VOLUME 86.1 fl (80-96); MEAN PLT VOLUME 10.1 fl (7.5-11.1); PLATELET COUNT 288 K/MM3 (134-434); RBC 5.11 M/mm3 (3.60-5.2); RDW 15.3 % (11.6-15.6); WHITE BLOOD COUNT 8.4 K/mm3 (4.0-10.0)
[2017-05-05 10:37] LABS: CHLORIDE 99 mmol/L (98-107); POTASSIUM 4.2 mmol/L (3.5-5.1); SODIUM 136 mmol/L (136-145)
[2017-05-05] MEDS: SERTRALINE HCL 50 MG TABLET (FP) PO SCH (10:42)
[2017-05-05] MEDS: PRENATAL VITAMINS W/ FOLIC ACID TABLET (FP) PO SCH (10:42)
[2017-05-05 10:46] LABS: ALBUMIN 4.6 g/dl (3.4-5.0); ALK PHOS 172 U/L (45-117); ANION GAP 11 (8-16); BILIRUBIN,TOTAL 0.6 mg/dL (0.2-1.0); BLOOD UREA NITROGEN 16 mg/dL (7-18); CALCIUM 9.4 mg/dL (8.5-10.1); CO2 26 mmol/L (21-32); CREATININE 0.8 mg/dL (0.55-1.02); GLUCOSE,RANDOM 86 mg/dL (74-106); SGOT/AST 19 U/L (15-37); SGPT/ALT 26 U/L (12-78); TOT PROT 8.2 g/dl (6.4-8.2)
--- NOTE | 2017-05-05 11:52 | EKG ---
Test Reason : Blood Pressure : / mmHG Vent. Rate : 073 BPM Atrial Rate : 073 BPM P-R Int : 130 ms QRS Dur : 096 ms QT Int : 408 ms P-R-T Axes : 060 075 057 degrees QTc Int : 449 ms NORMAL SINUS RHYTHM NORMAL ECG WHEN COMPARED WITH ECG OF 04-MAY-2017 17:02, NO SIGNIFICANT CHANGE WAS FOUND Confirmed by EUGENIO GUZMAN MD ([id number]) on 05/05/2017 11:52:13 AM Referred By: Confirmed By:EUGENIO GUZMAN MD
[2017-05-05] MEDS: THIAMINE HCL 100 MG TABLET (FP) PO SCH (23:07)
[2017-05-05] MEDS: NAPROXEN 500 MG TABLET (FP) PO PRN (23:07)
[2017-05-05] MEDS: LATANOPROST 0.005% OPHTH SOLN 2.5ML BOTTLE OU SCH (23:07)
[2017-05-05] MEDS: MIRTAZAPINE 30 MG TABLET (FP) PO SCH (23:07)
[2017-05-05] MEDS: QUEtiapine FUMARATE 200 MG TABLET PO SCH (23:07)
[2017-05-05] MEDS: MELATONIN 5 MG TABLETS PO SCH (23:18)
[2017-05-06] MEDS: BRIMONIDINE TARTRATE 0.15% OPHTHALMIC 5 ML BOTTLE OU SCH ×3 (06:53→23:00)
[2017-05-06] MEDS: chlordiazePOXIDE HCL 25 MG CAPSULE PO SCH ×3 (06:53→17:36)
[2017-05-06] MEDS: QUEtiapine FUMARATE 100 MG TABLET (FP) PO SCH (07:36)
[2017-05-06] MEDS ORDERED: SERTRALINE HCL 50 MG TABLET (FP) PO SCH (10:00)
--- NOTE | 2017-05-06 11:10 | PN ---
[facility] CIWA - CIWA Score Nausea/Vomitin-Mild Nausea/No Vomiting Muscle Tremors: 4-Moderate,w/Arms Extend Anxiety: 4-Mod. Anxious/Guarded Agitation: 4-Moderately Restless Paroxysmal Sweats: 1-Minimal Palms Moist Orientation: 0-Oriented Tacttile Disturbances: 0-None Auditory Disturbances: 0-None Visual Disturbances: 0-None Headache: 0-None Present CIWA-Ar Total Score: 14 BHS Progress Note (SOAP) Subjective: sweat tremor anxiety restlessness mild nausea sleeplessness Objective: 05/06/17 11:10 Vital Signs Temperature 99.0 F 05/06/17 10:00 Pulse Rate 81 05/06/17 10:00 Respiratory Rate 18 05/06/17 10:00 Blood Pressure 117/66 05/06/17 10:00 O2 Sat by Pulse Oximetry (%) Laboratory Last Values WBC 8.4 K/mm3 (4.0-10.0) D 05/05/17 06:00 RBC 5.11 M/mm3 (3.60-5.2) 05/05/17 06:00 Hgb 14.3 GM/dL (10.7-15.3) 05/05/17 06:00 Hct 44.0 % (32.4-45.2) 05/05/17 06:00 MCV 86.1 fl (80-96) 05/05/17 06:00 MCH 28.0 pg (25.7-33.7) 05/05/17 06:00 MCHC 32.6 g/dl (32.0-36.0) 05/05/17 06:00 RDW 15.3 % (11.6-15.6) 05/05/17 06:00 Plt Count 288 K/MM3 (134-434) D 05/05/17 06:00 MPV 10.1 fl (7.5-11.1) 05/05/17 06:00 Sodium 136 mmol/L (136-145) 05/05/17 06:00 Potassium 4.2 mmol/L (3.5-5.1) 05/05/17 06:00 Chloride 99 mmol/L (98-107) 05/05/17 06:00 Carbon Dioxide 26 mmol/L (21-32) 05/05/17 06:00 Anion Gap 11 (8-16) 05/05/17 06:00 BUN 16 mg/dL (7-18) 05/05/17 06:00 Creatinine 0.8 mg/dL (0.55-1.02) 05/05/17 06:00 Creat Clearance w eGFR > 60 (>60) 05/05/17 06:00 Random Glucose 86 mg/dL (74-106) 05/05/17 06:00 Calcium 9.4 mg/dL (8.5-10.1) 05/05/17 06:00 Total Bilirubin 0.6 mg/dL (0.2-1.0) 05/05/17 06:00 AST 19 U/L (15-37) 05/05/17 06:00 ALT 26 U/L (12-78) 05/05/17 06:00 Alkaline Phosphatase 172 U/L (45-117) H 05/05/17 06:00 Total Protein 8.2 g/dl (6.4-8.2) 05/05/17 06:00 Albumin 4.6 g/dl (3.4-5.0) 05/05/17 06:00 Urine Color Straw 05/04/17 22:59 Urine Appearance Clear 05/04/17 22:59 Urine pH 5.0 (5.0-8.0) 05/04/17 22:59 Ur Specific [place] 1.004 (1.001-1.035) 05/04/17 22:59 Urine Protein Negative (NEGATIVE) 05/04/17 22:59 Urine Glucose (UA) Negative (NEGATIVE) 05/04/17 22:59 Urine Ketones Negative (NEGATIVE) 05/04/17 22:59 Urine Blood Negative (NEGATIVE) 05/04/17 22:59 Urine Nitrite Negative (NEGATIVE) 05/04/17 22:59 Urine Bilirubin Negative (NEGATIVE) 05/04/17 22:59 Urine Urobilinogen Negative mg/dL (0.2-1.0) 05/04/17 22:59 Ur Leukocyte Esterase Negative (NEGATIVE) 05/04/17 22:59 RPR Titer Nonreactive (NONREACTIVE) 05/05/17 06:00 lab noted Assessment: 05/06/17 11:10 withdrawal sx Plan: continue detox
[2017-05-06] MEDS: PRENATAL VITAMINS W/ FOLIC ACID TABLET (FP) PO SCH (11:19)
[2017-05-06] MEDS: SERTRALINE HCL 50 MG TABLET (FP) PO SCH (11:19)
[2017-05-06] MEDS: NAPROXEN 500 MG TABLET (FP) PO PRN ×2 (11:21→23:00)
[2017-05-06] MEDS: LATANOPROST 0.005% OPHTH SOLN 2.5ML BOTTLE OU SCH (22:59)
[2017-05-06] MEDS: MIRTAZAPINE 30 MG TABLET (FP) PO SCH (23:00)
[2017-05-06] MEDS: QUEtiapine FUMARATE 200 MG TABLET PO SCH (23:00)
[2017-05-06] MEDS: chlordiazePOXIDE 5 MG CAPSULE PO SCH (23:00)
[2017-05-06] MEDS: THIAMINE HCL 100 MG TABLET (FP) PO SCH (23:00)
[2017-05-06] MEDS: MELATONIN 5 MG TABLETS PO SCH (23:11)
[2017-05-07] MEDS: chlordiazePOXIDE 5 MG CAPSULE PO SCH ×3 (05:52→17:24)
[2017-05-07] MEDS: BRIMONIDINE TARTRATE 0.15% OPHTHALMIC 5 ML BOTTLE OU SCH ×3 (05:54→22:45)
[2017-05-07] MEDS: QUEtiapine FUMARATE 100 MG TABLET (FP) PO SCH (06:11)
--- NOTE | 2017-05-07 09:12 | PN ---
BHS Progress Note (SOAP) Subjective: interrupted sleep,decreased appetite Objective: 05/07/17 09:11 Vital Signs Temperature 97.7 F 05/07/17 06:31 Pulse Rate 78 05/07/17 06:31 Respiratory Rate 20 05/07/17 06:31 Blood Pressure 130/89 05/07/17 06:31 O2 Sat by Pulse Oximetry (%) Laboratory Tests 05/04/17 05/05/17 05/05/17 22:59 06:00 06:00 WBC 8.4 D RBC 5.11 Hgb 14.3 Hct 44.0 MCV 86.1 MCH 28.0 MCHC 32.6 RDW 15.3 Plt Count 288 D MPV 10.1 Sodium 136 Potassium 4.2 Chloride 99 Carbon Dioxide 26 Anion Gap 11 BUN 16 Creatinine 0.8 Creat Clearance w eGFR > 60 Random Glucose 86 Calcium 9.4 Total Bilirubin 0.6 AST 19 ALT 26 Alkaline Phosphatase 172 H Total Protein 8.2 Albumin 4.6 Urine Color Straw Urine Appearance Clear Urine pH 5.0 Ur Specific [place] 1.004 Urine Protein Negative Urine Glucose (UA) Negative Urine Ketones Negative Urine Blood Negative Urine Nitrite Negative Urine Bilirubin Negative Urine Urobilinogen Negative Ur Leukocyte Esterase Negative RPR Titer 05/05/17 06:00 WBC RBC Hgb Hct MCV MCH MCHC RDW Plt Count MPV Sodium Potassium Chloride Carbon Dioxide Anion Gap BUN Creatinine Creat Clearance w eGFR Random Glucose Calcium Total Bilirubin AST ALT Alkaline Phosphatase Total Protein Albumin Urine Color Urine Appearance Urine pH Ur Specific [place] Urine Protein Urine Glucose (UA) Urine Ketones Urine Blood Urine Nitrite Urine Bilirubin Urine Urobilinogen Ur Leukocyte Esterase RPR Titer Nonreactive pt aox3 in nad ambulating Assessment: 05/07/17 09:11 withdrawal sx's Plan: cont. detox increase fluids n d/c in am ensure bid
[2017-05-07] MEDS: PRENATAL VITAMINS W/ FOLIC ACID TABLET (FP) PO SCH (11:55)
[2017-05-07] MEDS: SERTRALINE HCL 50 MG TABLET (FP) PO SCH (11:55)
[2017-05-07] MEDS: LATANOPROST 0.005% OPHTH SOLN 2.5ML BOTTLE OU SCH (22:46)
[2017-05-07] MEDS: QUEtiapine FUMARATE 200 MG TABLET PO SCH (22:46)
[2017-05-07] MEDS: chlordiazePOXIDE HCL 10 MG CAPSULE PO SCH (22:46)
[2017-05-07] MEDS: THIAMINE HCL 100 MG TABLET (FP) PO SCH (22:46)
[2017-05-07] MEDS: MELATONIN 5 MG TABLETS PO SCH (22:46)
[2017-05-07] MEDS: MIRTAZAPINE 30 MG TABLET (FP) PO SCH (22:46)
[2017-05-08] MEDS: chlordiazePOXIDE HCL 10 MG CAPSULE PO SCH (05:52)
[2017-05-08] MEDS: BRIMONIDINE TARTRATE 0.15% OPHTHALMIC 5 ML BOTTLE OU SCH (05:53)
[2017-05-08] MEDS: QUEtiapine FUMARATE 100 MG TABLET (FP) PO SCH (06:45)
[2017-05-08 09:54] VITALS: BP 144/76; PULSE 69; TEMP 97.9
--- NOTE | 2017-05-08 15:52 | PN ---
S Progress Note (SOAP) Subjective: 05/08/17 14:58 feels okay no new complaint Objective: A & O x 3 ambulates with a chair not in distress Vital Signs Temperature 97.9 F 05/08/17 09:53 Pulse Rate 69 05/08/17 09:53 Respiratory Rate 16 05/08/17 09:53 Blood Pressure 144/76 05/08/17 09:53 O2 Sat by Pulse Oximetry (%) Assessment: 05/08/17 15:51 detox successfully completed Plan: for discharge
--- NOTE | 2017-05-08 15:57 | DS ---
[facility] Detox Discharge Summary Admission Date: 05/04/17 Discharge Date: 05/08/17 - History Additional Comments: Pt for discharge states she will do outpatient rehab and AA meetings Pertinent Past History: htn asthma glaucoma Bronchitis - Physical Exam Results Vital Signs: Vital Signs Temperature 97.9 F 05/08/17 09:53 Pulse Rate 69 05/08/17 09:53 Respiratory Rate 16 05/08/17 09:53 Blood Pressure 144/76 05/08/17 09:53 O2 Sat by Pulse Oximetry (%) Pertinent Admission Physical Exam Findings: withdrawal sx - Treatment Hospital Course: Detox Protocol Followed, Detoxed Safely, Responded well, Discharged Condition Good Patient has Accepted a Rehab Referral to: O/P rehab at [facility] - Medication Discharge Medications: Ambulatory Orders Mirtazapine [Remeron -] 45 mg PO HS #30 tablet 06/06/15 Sertraline HCl [Zoloft -] 200 mg PO DAILY 11/16/15 Albuterol Sulfate Inhaler - [Ventolin HFA Inhaler -] 2 puff IH Q4H PRN #1 cartridge 11/20/15 Brimonidine Tartrate [Alphagan 0.15% -] 1 drop OU TID #1 drops 11/20/15 Latanoprost 0.005% Eye Drops [Xalatan 0.005% Eye Drops -] 1 drop OU HS #1 drops 11/20/15 Naproxen [Naprosyn] 500 mg PO DAILY 05/04/17 Quetiapine Fumarate [Seroquel -] 200 mg PO AM 05/04/17 Quetiapine Fumarate [Seroquel -] 400 mg PO HS 05/04/17 Albuterol Sulfate Inhaler - [Ventolin HFA Inhaler -] 2 puff IH Q4H PRN #1 inhaler 05/07/17 Brimonidine Tartrate [Alphagan 0.15% -] 1 drop OU TID #1 drops 05/07/17 Latanoprost 0.005% Eye Drops [Xalatan 0.005% Eye Drops -] 1 drop OU HS #1 drops 05/07/17 - Diagnosis (1) Alcohol dependence with uncomplicated withdrawal Status: Acute (2) Nicotine dependence Status: Chronic Qualifiers: Nicotine product type: cigarettes Substance use status: in withdrawal Qualified Code(s): F17.213 - Nicotine dependence, cigarettes, with withdrawal (3) Substance induced mood disorder Status: Chronic (4) Substance-induced sleep disorder Status: Chronic (5) Walker as ambulation aid Status: Acute (6) Asthma Status: Chronic Qualifiers: Asthma severity: mild Asthma complication type: uncomplicated (7) Cocaine dependence Status: Chronic (8) Glaucoma Status: Acute Qualifiers: Primary angle closure glaucoma type: unspecified type Laterality: bilateral Glaucoma stage: stage unspecified - AMA Did Patient Leave Against Medical Advice: No
== END 2017-05-08 10:15 | disposition home or self-care (01) | DRG 774 ==
LOC: YASAS 11:51 → Y6N 15:36
PROVIDERS: ADMIT Internal Medicine; ATTEND Internal Medicine
PROC: HZ2ZZZZ Detoxification Services for Substance Abuse Treatment (ICD-10-PCS; principal; 2017-05-04)
DX: F10.230 Alcohol dependence with withdrawal, uncomplicated (principal); F14.20 Cocaine dependence, uncomplicated; F17.213 Nicotine dependence, cigarettes, with withdrawal; F19.24 Other psychoactive substance dependence with psychoactive substance-induced mood disorder; F19.282 Other psychoactive substance dependence with psychoactive substance-induced sleep disorder; F25.9 Schizoaffective disorder, unspecified; I10 Essential (primary) hypertension; J45.20 Mild intermittent asthma, uncomplicated; H40.89 Other specified glaucoma; R76.11 Nonspecific reaction to tuberculin skin test without active tuberculosis
CPT/HCPCS: 36415; 80053; 81003; 85027; 86593; 93005; 93010; J0735

== ENCOUNTER 2017-07-20 13:21 | Inpatient (IN) | payer OTHER ==
[2017-07-20 15:01] VITALS: BMI 30.9
--- NOTE | 2017-07-20 17:33 | HP ---
CIWA Score - CIWA Score Nausea/Vomitin-No Nausea/No Vomiting Muscle Tremors: 3 Anxiety: 3 Agitation: 4-Moderately Restless Paroxysmal Sweats: 2 Orientation: 0-Oriented Tacttile Disturbances: 0-None Auditory Disturbances: 0-None Visual Disturbances: 1-Very Mild Sensitivity Headache: 1-Very Mild CIWA-Ar Total Score: 14 Admission ROS S - HPI Chief Complaint: alcohol withdrawal symptoms Allergies/Adverse Reactions: Allergies Allergy/AdvReac Type Severity Reaction Status Date / Time fish derived [Fish derived] Allergy Mild Hives Verified 07/20/17 16:39 No Known Drug Allergies Allergy Verified 07/20/17 16:39 NICOTINE PATCH Allergy Severe Rash Uncoded 07/20/17 16:39 History of Present Illness: 57 years old female with long history of alcohol, nicotine, crack/cocaine dependence is here seeking detox. PMHX: hypertension, asthma, chronic bronchitis, positive ppd, early liver cirrhosis and schizophrenia. Denies suicidal / homicidal ideation. Denies auditory or visual hallucinations. Denies hx of seizures, reports frequent alcohol related black outs with last episode a month ago. Last detox at [facility] 05/04/17 -05/08/17. Longest period of sobriety 16 months. Exam Limitations: No Limitations - Ebola screening Have you traveled outside of the country in the last 21 days: No (N) Have you had contact with anyone from an Ebola affected area: No Have you been sick,other than usual withdrawal symptoms: No Do you have a fever: No - Review of Systems Constitutional: Chills (" I can't eat"), Loss of Appetite, Changes in sleep ( seroquel for sleep) EENT: reports: Dental Problems (missing teeth, wears dentures), Other ( bilateral glaucoma) Respiratory: reports: Cough (chronic), SOB with Exertion Cardiac: reports: No Symptoms Reported GI: reports: Poor Appetite : reports: No Symptoms Reported Musculoskeletal: reports: Back Pain, Joint Pain (bilateral knee OA, chronic neck and b/l shoulder pain) Integumentary: reports: No Symptoms Reported Neuro: reports: See HPI, Headache, Tremors (hands) Hematology: reports: No Symptoms Reported Psychiatric: reports: Orientated x3, Anxious Patient History - Patient Medical History Hx Anemia: No Hx Asthma: Yes Hx Chronic Obstructive Pulmonary Disease (COPD): No Hx Cancer: No Hx Cardiac Disorders: No Hx Congestive Heart Failure: No Hx Hypertension: No Hx Hypercholesterolemia: No Hx Pacemaker: No HX Cerebrovascular Accident: No Hx Seizures: No Hx Dementia: No Hx Diabetes: No Hx Gastrointestinal Disorders: Yes (acid reflux) Hx Liver Disease: No Hx Genitourinary Disorders: No Hx Sexually Transmitted Disorders: No Hx Renal Disease (ESRD): No Hx Thyroid Disease: No Hx Human Immunodeficiency Virus (HIV): No (last 04/03 negative) Hx Hepatitis C: No Hx Depression: Yes Hx Suicide Attempt: No Hx Bipolar Disorder: No Hx Schizophrenia: Yes (paranoid schizophrenia) - Patient Surgical History Past Surgical History: Yes Hx Neurologic Surgery: No Hx Cataract Extraction: No Hx Cardiac Surgery: No Hx Lung Surgery: No Hx Breast Surgery: No Hx Breast Biopsy: No Hx Abdominal Surgery: No Hx Appendectomy: No Hx Cholecystectomy: No Hx Genitourinary Surgery: No Hx Section: Yes (X 3 IN 1984, 1997 AND 1998) Hx Orthopedic Surgery: No Hx Hysterectomy: No Anesthesia Reaction: No - PPD History Previous Implant?: Yes Documented Results: Positive w/o proof Date: 10/04/16 Results: CXR(-)09/17/16 - Reproductive History Last Menstrual Period: 10/16/14 - Smoking Cessation Smoking history: Current every day smoker Have you smoked in the past 12 months: Yes Aproximately how many cigarettes per day: 7 Cigars Per Day: 0 Hx Chewing Tobacco Use: No Initiated information on smoking cessation: Yes 'Breaking Loose' booklet given: 07/20/17 - Substance & Tx. History Hx Alcohol Use: Yes Hx Substance Use: Yes Substance Use Type: Alcohol Hx Substance Use Treatment: Yes ([facility] 05/04/17 -05/08/17) - Substances Abused Cocaine Route: Inhalation Frequency: 1-2 times per week Amount used: $100-150 Age of first use: 17 Date of Last Use: 07/19/17 Alcohol-vodka/beer Route: Oral Frequency: Daily Amount used: 2 pts./2-6 pks. Age of first use: 17 Date of Last Use: 07/20/17 Family Disease History - Family Disease History Family Disease History: Diabetes: Mother (HTN), Sister (substance abuse ), Heart Disease: Father (HTN,ALCOHOLIC), Mother, Other: Father, Sister Admission Physical Exam BHS - Vital Signs Vital Signs: Vital Signs - 24 hr 07/20/17 14:59 Temperature 97.7 F Pulse Rate 94 H Respiratory 20 Rate Blood Pressure 133/83 - Physical General Appearance: Yes: Disheveled, Obese, Tremorous, Anxious HEENTM: Yes: EOMI, Hearing grossly Normal, Normal ENT Inspection, Normocephalic , Normal Voice, HOMER, Pharynx Normal, Tm's normal, Other (wears glasses, poor dentition) Respiratory: Yes: Chest Non-Tender, Lungs Clear, Normal Breath Sounds, No Respiratory Distress, No Accessory Muscle Use Neck: Yes: Within Normal Limits Breast: Yes: Breast Exam Deferred Cardiology: Yes: Regular Rhythm, Regular Rate Abdominal: Yes: Normal Bowel Sounds, Flat, Soft, Protuberent Genitourinary: Yes: Within Normal Limits Back: Yes: Normal Inspection Musculoskeletal: Yes: full range of Motion, Gait Steady, Pelvis Stable, Back pain Extremities: Yes: Normal Capillary Refill, Normal Inspection, Normal Range of Motion, Non-Tender, Tremors (hands) Neurological: Yes: machining supervisor II-XII NML intact, Fully Oriented, Alert, Motor Strength 5/5, Normal Mood/Affect, Normal Response Integumentary: Yes: Normal Color, Warm, Moist Lymphatic: Yes: Within Normal Limits - Diagnostic (1) Psychiatric disorder Current Visit: Yes Status: Suspected (2) Alcohol dependence with uncomplicated withdrawal Current Visit: Yes Status: Acute (3) Glaucoma Current Visit: Yes Status: Chronic Qualifiers: Primary angle closure glaucoma type: unspecified type Laterality: bilateral Glaucoma stage: stage unspecified (4) Asthma Current Visit: Yes Status: Chronic Qualifiers: Asthma severity: mild Asthma complication type: uncomplicated (5) Cocaine dependence Current Visit: Yes Status: Chronic (6) Nicotine dependence Current Visit: Yes Status: Chronic Qualifiers: Nicotine product type: cigarettes Substance use status: in withdrawal Qualified Code(s): F17.213 - Nicotine dependence, cigarettes, with withdrawal (7) History of positive PPD Current Visit: Yes Status: Chronic Cleared for Admission [facility] - Detox or Rehab [facility] Level of Care: Medically Managed Detox Regimen/Protocol: Librium [facility] Breath Alcohol Content Breath Alcohol Content: 0 Urine Pregancy Test - Result Urine Test Results: Negative- NO Line Present Urine Drug Screen - Results Drug Screen Negative: No Urine Drug Screen Results: MIHAELA-Cocaine
[2017-07-20] MEDS ORDERED: ALBUTEROL SO4 18 GM HFA INHALER IH PRN (17:40)
[2017-07-20] MEDS ORDERED: MENTHOL/PHENOL 1 EACH UD MM PRN (17:44)
[2017-07-20] MEDS ORDERED: P-EPHED 60MG/TRIPROLIDI 2.5MG TABLET PO PRN (17:44)
[2017-07-20] MEDS ORDERED: hydrOXYzine PAMOATE 50 MG CAPSULE (FP) PO PRN (17:44)
[2017-07-20] MEDS ORDERED: NICOTINE POLACRILEX 2 MG GUM BC PRN (17:44)
[2017-07-20] MEDS ORDERED: LOPERAMIDE HCL 2 MG CAPSULE PO PRN (17:44)
[2017-07-20] MEDS ORDERED: ACETAMINOPHEN 325 MG TABLET (FP) PO PRN (17:44)
[2017-07-20] MEDS ORDERED: MAG HYDROX/AL HYDROX/SIMETH 30 ML UNIT-DOSE CUP PO PRN (17:44)
[2017-07-20] MEDS ORDERED: MAGNESIUM CITRATE 300 ML BOTTLE PO PRN (17:44)
[2017-07-20] MEDS ORDERED: MAGNESIUM HYDROX 2400MG/30ML ORAL SUSPENSION 30 ML CUP PO PRN (17:44)
[2017-07-20] MEDS ORDERED: guaiFENesin/D-METHORPHAN HB 10 ML UNIT-DOSE CUPS PO PRN (17:44)
[2017-07-20] MEDS ORDERED: chlordiazePOXIDE HCL 25 MG CAPSULE PO ONE (18:00)
[2017-07-20] MEDS: chlordiazePOXIDE HCL 25 MG CAPSULE PO PRN (21:01)
[2017-07-20] MEDS ORDERED: MELATONIN 5 MG TABLETS PO PRN (22:00)
[2017-07-20] MEDS: chlordiazePOXIDE HCL 25 MG CAPSULE PO SCH (22:27)
[2017-07-20] MEDS: BRIMONIDINE TARTRATE 0.2% OPHTHALMIC 5 ML BOTTLE OU SCH (22:28)
[2017-07-20] MEDS: PANTOPRAZOLE 40 MG TABLET (FP) PO SCH (22:28)
[2017-07-20] MEDS: LATANOPROST 0.005% OPHTH SOLN 2.5ML BOTTLE OU SCH (22:29)
[2017-07-21] MEDS: BRIMONIDINE TARTRATE 0.2% OPHTHALMIC 5 ML BOTTLE OU SCH ×3 (06:09→22:45)
[2017-07-21] MEDS: chlordiazePOXIDE HCL 25 MG CAPSULE PO SCH ×4 (06:09→22:45)
--- NOTE | 2017-07-21 07:35 | CONSULT ---
[facility] Psychiatric Consult - Data Date of interview: 07/21/17 Admission source: [facility] Identifying data: This is 57 years old female, divorsed, mother of four, living alone, on SSI, with history of Schizophrenia, history of psychiatric hospitalizations, with long history of alcohol, nicotine, crack/cocaine dependence is here seeking detox. Patient reports withdrawal symptoms. Substance Abuse History: Smoking history: Current every day smoker. Have you smoked in the past 12 months: Yes. Aproximately how many cigarettes per day: 7. Cigars Per Day: 0. Hx Chewing Tobacco Use: No. Initiated information on smoking cessation: Yes. 'Breaking Loose' booklet given: 07/20/17. - Substance & Tx. History. Hx Alcohol Use: Yes. Hx Substance Use: Yes. Substance Use Type : Alcohol. Hx Substance Use Treatment: Yes ([facility] 05/04/17 -05/08/17). - Substances Abused. Cocaine. Route: Inhalation. Frequency: 1-2 times per week. Amount used: $100-150. Age of first use: 17. Date of Last Use: . Alcohol-vodka/beer. Route: Oral. Frequency: Daily. Amount used: 2 pts./2-6 pks. Age of first use: 17. Date of Last Use: 07/20/17 Medical History: Asthma, history of PPD, HTN, Chronic bronchitis, Liver Cirrhosis, Glaucoma. Patient using walker for ambulation. Psychiatric History: Patient reports history of Schizophrenia withy multiple psychiatric hospitalization, with most recent one-"I do not rermember", reports currently stable on: Seroquel 200mg am, 400mg hs. Zoloft 100mg poqd. Remeron 45mg po qhs. Patient reports taking those medications dusing previous detox and neve has been oversedated. Physical/Sexual Abuse/Trauma History: Denies Additional Comment: Seroquel 200mg am, 400mg hs. Zoloft 100mg poqd. Remeron 45mg po qhs Mental Status Exam - Mental Status Exam Alert and Oriented to: Person Cognitive Function: Fair Patient Appearance: Unkempt Mood: Anxious Affect: Constricted Patient Behavior: Cooperative Speech Pattern: Excessive Voice Loudness: Mildly Loud Thought Process: Goal Oriented Thought Disorder: Being Controlled Hallucinations: Denies Suicidal Ideation: Denies Homicidal Ideation: Denies Insight/Judgement: Fair Sleep: Difficulty falling asleep Appetite: Weight gain Muscle strength/Tone: Mild Hypertonicity Gait/Station: Deferred Additional Comments: Seroquel 200mg am, 400mg hs. Zoloft 100mg poqd. Remeron 45mg po qhs Psychiatric Findings - Problem List ([place] 1, 2,3) (1) Alcohol dependence with uncomplicated withdrawal Current Visit: Yes Status: Acute (2) Cocaine dependence Current Visit: Yes Status: Chronic (3) Nicotine dependence Current Visit: Yes Status: Chronic Qualifiers: Nicotine product type: cigarettes Substance use status: in withdrawal Qualified Code(s): F17.213 - Nicotine dependence, cigarettes, with withdrawal (4) Schizoaffective disorder Current Visit: No Status: Chronic Comment: Historical diagnosis. (5) Substance induced mood disorder Current Visit: No Status: Chronic (6) Substance-induced sleep disorder Current Visit: No Status: Chronic (7) Schizophrenia Current Visit: No Status: Suspected Qualifiers: Schizophrenia type: unspecified Qualified Code(s): F20.9 - Schizophrenia, unspecified - Initial Treatment Plan Initial Treatment Plan: Seroquel 200mg am, 400mg hs. Zoloft 100mg poqd. Remeron 45mg po qhs
[2017-07-21] MEDS ORDERED: FOLIC ACID 1 MG TABLET (FP) PO SCH (10:00)
[2017-07-21 10:27] LABS: HEMATOCRIT 40.1 % (32.4-45.2); MCH 27.7 pg (25.7-33.7); MCHC 32.5 g/dl (32.0-36.0); MEAN CELL VOLUME 85.4 fl (80-96); MEAN PLT VOLUME 9.8 fl (7.5-11.1); PLATELET COUNT 216 K/MM3 (134-434); RDW 14.8 % (11.6-15.6)
[2017-07-21 10:51] LABS: CHLORIDE 102 mmol/L (98-107); POTASSIUM 3.6 mmol/L (3.5-5.1); SODIUM 139 mmol/L (136-145)
[2017-07-21] MEDS: PRENATAL VITAMINS W/ FOLIC ACID TABLET (FP) PO SCH (11:04)
[2017-07-21] MEDS: PANTOPRAZOLE 40 MG TABLET (FP) PO SCH ×2 (11:04→22:44)
[2017-07-21] MEDS: NAPROXEN 500 MG TABLET (FP) PO SCH (11:04)
[2017-07-21] MEDS: chlordiazePOXIDE HCL 25 MG CAPSULE PO PRN (11:05)
[2017-07-21 11:07] LABS: ALBUMIN 3.4 g/dl (3.4-5.0); ALK PHOS 123 U/L (45-117); ANION GAP 8 (8-16); BILIRUBIN,TOTAL 0.4 mg/dL (0.2-1.0); BLOOD UREA NITROGEN 17 mg/dL (7-18); CALCIUM 8.8 mg/dL (8.5-10.1); CO2 29 mmol/L (21-32); CREATININE 0.8 mg/dL (0.55-1.02); GLUCOSE,RANDOM 162 mg/dL (74-106); SGOT/AST 14 U/L (15-37); SGPT/ALT 19 U/L (12-78); TOT PROT 6.3 g/dl (6.4-8.2)
[2017-07-21] MEDS: SERTRALINE HCL 50 MG TABLET (FP) PO SCH (11:07)
--- NOTE | 2017-07-21 11:15 | PN ---
S CIWA - CIWA Score Nausea/Vomitin Muscle Tremors: 3 Anxiety: 3 Agitation: 2 Paroxysmal Sweats: 1-Minimal Palms Moist Orientation: 0-Oriented Tacttile Disturbances: 1-Very Mild Itch/Numbness Auditory Disturbances: 1-Very Mild Visual Disturbances: 0-None Headache: 2-Mild CIWA-Ar Total Score: 16 S Progress Note (SOAP) Subjective: alert,irritable,anxious,interrupted sleep Objective: 07/21/17 11:12 Vital Signs Temperature 97.3 F L 07/21/17 09:35 Pulse Rate 70 07/21/17 09:35 Respiratory Rate 18 07/21/17 09:35 Blood Pressure 98/60 07/21/17 09:35 O2 Sat by Pulse Oximetry (%) ekg nsr ,lvh prolong qt 368/457 no chest pain,no sob,no dizziness Laboratory Last Values WBC 7.0 K/mm3 (4.0-10.0) 07/21/17 07:30 RBC 4.70 M/mm3 (3.60-5.2) 07/21/17 07:30 Hgb 13.0 GM/dL (10.7-15.3) 07/21/17 07:30 Hct 40.1 % (32.4-45.2) 07/21/17 07:30 MCV 85.4 fl (80-96) 07/21/17 07:30 MCH 27.7 pg (25.7-33.7) 07/21/17 07:30 MCHC 32.5 g/dl (32.0-36.0) 07/21/17 07:30 RDW 14.8 % (11.6-15.6) 07/21/17 07:30 Plt Count 216 K/MM3 (134-434) D 07/21/17 07:30 MPV 9.8 fl (7.5-11.1) 07/21/17 07:30 lab pending Assessment: 07/21/17 11:14 withdrawal symptom Plan: continue detox
[2017-07-21] MEDS ORDERED: QUEtiapine FUMARATE 200 MG TABLET PO ONE (11:34)
--- NOTE | 2017-07-21 11:54 | EKG ---
Test Reason : Blood Pressure : / mmHG Vent. Rate : 093 BPM Atrial Rate : 093 BPM P-R Int : 112 ms QRS Dur : 086 ms QT Int : 368 ms P-R-T Axes : 070 076 040 degrees QTc Int : 457 ms NORMAL SINUS RHYTHM BIATRIAL ENLARGEMENT LEFT VENTRICULAR HYPERTROPHY WITH REPOLARIZATION ABNORMALITY ABNORMAL ECG WHEN COMPARED WITH ECG OF 05-MAY-2017 08:43, NON-SPECIFIC CHANGE IN ST SEGMENT IN INFERIOR LEADS NON-SPECIFIC CHANGE IN ST SEGMENT IN ANTEROLATERAL LEADS Confirmed by MEGAN LOVING, EUGENIO ([id number]) on 07/21/2017 11:54:11 AM Referred By: Confirmed By:EUGENIO GUZMAN MD
[2017-07-21] MEDS: MIRTAZAPINE 15 MG TABLET (FP) PO SCH (22:44)
[2017-07-21] MEDS: LATANOPROST 0.005% OPHTH SOLN 2.5ML BOTTLE OU SCH (22:46)
[2017-07-22] MEDS ORDERED: QUEtiapine FUMARATE 200 MG TABLET PO SCH (07:00)
[2017-07-22] MEDS: BRIMONIDINE TARTRATE 0.2% OPHTHALMIC 5 ML BOTTLE OU SCH ×3 (07:14→21:23)
[2017-07-22] MEDS: chlordiazePOXIDE HCL 25 MG CAPSULE PO SCH ×3 (07:14→17:46)
--- NOTE | 2017-07-22 09:54 | PN ---
S CIWA - CIWA Score Nausea/Vomitin Muscle Tremors: 3 Anxiety: 3 Agitation: 2 Paroxysmal Sweats: 1-Minimal Palms Moist Orientation: 0-Oriented Tacttile Disturbances: 1-Very Mild Itch/Numbness Auditory Disturbances: 1-Very Mild Visual Disturbances: 0-None Headache: 2-Mild CIWA-Ar Total Score: 16 BHS Progress Note (SOAP) Subjective: alert,irritable,tremor,interrupted sleep, Objective: 07/22/17 09:51 Vital Signs Temperature 98.1 F 07/22/17 09:13 Pulse Rate 79 07/22/17 09:13 Respiratory Rate 18 07/22/17 09:13 Blood Pressure 130/80 07/22/17 09:13 O2 Sat by Pulse Oximetry (%) Laboratory Last Values WBC 7.0 K/mm3 (4.0-10.0) 07/21/17 07:30 RBC 4.70 M/mm3 (3.60-5.2) 07/21/17 07:30 Hgb 13.0 GM/dL (10.7-15.3) 07/21/17 07:30 Hct 40.1 % (32.4-45.2) 07/21/17 07:30 MCV 85.4 fl (80-96) 07/21/17 07:30 MCH 27.7 pg (25.7-33.7) 07/21/17 07:30 MCHC 32.5 g/dl (32.0-36.0) 07/21/17 07:30 RDW 14.8 % (11.6-15.6) 07/21/17 07:30 Plt Count 216 K/MM3 (134-434) D 07/21/17 07:30 MPV 9.8 fl (7.5-11.1) 07/21/17 07:30 Sodium 139 mmol/L (136-145) 07/21/17 07:30 Potassium 3.6 mmol/L (3.5-5.1) 07/21/17 07:30 Chloride 102 mmol/L (98-107) 07/21/17 07:30 Carbon Dioxide 29 mmol/L (21-32) 07/21/17 07:30 Anion Gap 8 (8-16) 07/21/17 07:30 BUN 17 mg/dL (7-18) 07/21/17 07:30 Creatinine 0.8 mg/dL (0.55-1.02) 07/21/17 07:30 Creat Clearance w eGFR > 60 (>60) 07/21/17 07:30 Random Glucose 162 mg/dL (74-106) H 07/21/17 07:30 Calcium 8.8 mg/dL (8.5-10.1) 07/21/17 07:30 Total Bilirubin 0.4 mg/dL (0.2-1.0) D 07/21/17 07:30 AST 14 U/L (15-37) L 07/21/17 07:30 ALT 19 U/L (12-78) 07/21/17 07:30 Alkaline Phosphatase 123 U/L (45-117) H 07/21/17 07:30 Total Protein 6.3 g/dl (6.4-8.2) L 07/21/17 07:30 Albumin 3.4 g/dl (3.4-5.0) 07/21/17 07:30 RPR Titer Nonreactive (NONREACTIVE) 07/21/17 07:30 HIV 1&2 Antibody Screen Negative 07/21/17 07:30 HIV P24 Antigen Negative 07/21/17 07:30 Assessment: 07/22/17 09:53 withdrawal symptom Plan: continue detox,bgm monitoring,glucerna
[2017-07-22] MEDS: PRENATAL VITAMINS W/ FOLIC ACID TABLET (FP) PO SCH (10:47)
[2017-07-22] MEDS: SERTRALINE HCL 50 MG TABLET (FP) PO SCH (10:47)
[2017-07-22] MEDS: PANTOPRAZOLE 40 MG TABLET (FP) PO SCH ×2 (10:47→21:23)
[2017-07-22] MEDS: NAPROXEN 500 MG TABLET (FP) PO SCH (10:47)
[2017-07-22] MEDS: MIRTAZAPINE 15 MG TABLET (FP) PO SCH (21:22)
[2017-07-22] MEDS: LATANOPROST 0.005% OPHTH SOLN 2.5ML BOTTLE OU SCH (21:26)
[2017-07-22] MEDS: chlordiazePOXIDE 5 MG CAPSULE PO SCH (22:51)
[2017-07-23] MEDS: chlordiazePOXIDE 5 MG CAPSULE PO SCH ×3 (05:21→18:01)
[2017-07-23] MEDS: BRIMONIDINE TARTRATE 0.2% OPHTHALMIC 5 ML BOTTLE OU SCH ×3 (05:23→22:37)
[2017-07-23] MEDS ORDERED: QUEtiapine FUMARATE 200 MG TABLET PO SCH (10:00)
[2017-07-23] MEDS: NAPROXEN 500 MG TABLET (FP) PO SCH (11:24)
[2017-07-23] MEDS: PRENATAL VITAMINS W/ FOLIC ACID TABLET (FP) PO SCH (11:24)
[2017-07-23] MEDS: PANTOPRAZOLE 40 MG TABLET (FP) PO SCH ×2 (11:24→22:38)
[2017-07-23] MEDS: SERTRALINE HCL 50 MG TABLET (FP) PO SCH (11:24)
--- NOTE | 2017-07-23 11:58 | PN ---
S Progress Note (SOAP) Subjective: alert,irritable,interrupted sleep, Objective: 07/23/17 11:57 Vital Signs Temperature 96.8 F L 07/23/17 11:32 Pulse Rate 92 H 07/23/17 11:32 Respiratory Rate 18 07/23/17 11:32 Blood Pressure 133/84 07/23/17 11:32 O2 Sat by Pulse Oximetry (%) 07/23/17 11:57 bgm 98 Assessment: 07/23/17 11:58 withdrawal symptom Plan: continue detox,discharge in am
[2017-07-23 17:54] LABS: URINE APPEARANCE SLCLOUDY; URINE BILIRUBIN NEGATIVE (<2.0 mg/dL); URINE BLOOD NEGATIVE (NEGATIVE); URINE COLOR LTYELLOW; URINE GLUCOSE (UA) NEGATIVE (NEGATIVE); URINE KETONE NEGATIVE (NEGATIVE); URINE LEUK ESTERASE NEGATIVE (NEGATIVE); URINE NITRITE NEGATIVE (NEGATIVE); URINE PROTEIN NEGATIVE (NEGATIVE); URINE UROBILINOGEN NEGATIVE mg/dL (0.2-1.0)
[2017-07-23] MEDS: MIRTAZAPINE 15 MG TABLET (FP) PO SCH (22:37)
[2017-07-23] MEDS: LATANOPROST 0.005% OPHTH SOLN 2.5ML BOTTLE OU SCH (22:37)
[2017-07-23] MEDS: chlordiazePOXIDE HCL 10 MG CAPSULE PO SCH (22:38)
[2017-07-24] MEDS: chlordiazePOXIDE HCL 10 MG CAPSULE PO SCH (05:28)
[2017-07-24] MEDS: BRIMONIDINE TARTRATE 0.2% OPHTHALMIC 5 ML BOTTLE OU SCH (05:29)
[2017-07-24 06:43] VITALS: BP 125/81; PULSE 82; TEMP 97.7
--- NOTE | 2017-07-24 09:09 | PN ---
S Progress Note (SOAP) Subjective: alert,no complaint Objective: 07/24/17 09:07 Vital Signs Temperature 97.7 F 07/24/17 06:43 Pulse Rate 82 07/24/17 06:43 Respiratory Rate 18 07/24/17 06:43 Blood Pressure 125/81 07/24/17 06:43 O2 Sat by Pulse Oximetry (%) Assessment: 07/24/17 09:08 detox completed ,no withdrawal symptom Plan: discharge today,follow up with after care program as arrangement
--- NOTE | 2017-07-24 09:12 | DS ---
[facility] Detox Discharge Summary Admission Date: 07/20/17 Discharge Date: 07/24/17 - History Present History: Alcohol Dependence, Cocaine Dependence Additional Comments: follow up with after care program as arrangement Pertinent Past History: asthma nicotine dependence glaucoma schizoaffective disorder - Physical Exam Results Vital Signs: Vital Signs Temperature 97.7 F 07/24/17 06:43 Pulse Rate 82 07/24/17 06:43 Respiratory Rate 18 07/24/17 06:43 Blood Pressure 125/81 07/24/17 06:43 O2 Sat by Pulse Oximetry (%) Pertinent Admission Physical Exam Findings: withdrawal signs and symptom Laboratory Last Values WBC 7.0 K/mm3 (4.0-10.0) 07/21/17 07:30 RBC 4.70 M/mm3 (3.60-5.2) 07/21/17 07:30 Hgb 13.0 GM/dL (10.7-15.3) 07/21/17 07:30 Hct 40.1 % (32.4-45.2) 07/21/17 07:30 MCV 85.4 fl (80-96) 07/21/17 07:30 MCH 27.7 pg (25.7-33.7) 07/21/17 07:30 MCHC 32.5 g/dl (32.0-36.0) 07/21/17 07:30 RDW 14.8 % (11.6-15.6) 07/21/17 07:30 Plt Count 216 K/MM3 (134-434) D 07/21/17 07:30 MPV 9.8 fl (7.5-11.1) 07/21/17 07:30 Sodium 139 mmol/L (136-145) 07/21/17 07:30 Potassium 3.6 mmol/L (3.5-5.1) 07/21/17 07:30 Chloride 102 mmol/L (98-107) 07/21/17 07:30 Carbon Dioxide 29 mmol/L (21-32) 07/21/17 07:30 Anion Gap 8 (8-16) 07/21/17 07:30 BUN 17 mg/dL (7-18) 07/21/17 07:30 Creatinine 0.8 mg/dL (0.55-1.02) 07/21/17 07:30 Creat Clearance w eGFR > 60 (>60) 07/21/17 07:30 POC Glucometer 112 UNITS (80-120) 07/24/17 05:26 Random Glucose 162 mg/dL (74-106) H 07/21/17 07:30 Calcium 8.8 mg/dL (8.5-10.1) 07/21/17 07:30 Total Bilirubin 0.4 mg/dL (0.2-1.0) D 07/21/17 07:30 AST 14 U/L (15-37) L 07/21/17 07:30 ALT 19 U/L (12-78) 07/21/17 07:30 Alkaline Phosphatase 123 U/L (45-117) H 07/21/17 07:30 Total Protein 6.3 g/dl (6.4-8.2) L 07/21/17 07:30 Albumin 3.4 g/dl (3.4-5.0) 07/21/17 07:30 Urine Color Ltyellow 07/23/17 14:00 Urine Appearance Slcloudy 07/23/17 14:00 Urine pH 5.0 (5.0-8.0) 07/23/17 14:00 Ur Specific [place] 1.009 (1.001-1.035) 07/23/17 14:00 Urine Protein Negative (NEGATIVE) 07/23/17 14:00 Urine Glucose (UA) Negative (NEGATIVE) 07/23/17 14:00 Urine Ketones Negative (NEGATIVE) 07/23/17 14:00 Urine Blood Negative (NEGATIVE) 07/23/17 14:00 Urine Nitrite Negative (NEGATIVE) 07/23/17 14:00 Urine Bilirubin Negative (<2.0 mg/dL) 07/23/17 14:00 Urine Urobilinogen Negative mg/dL (0.2-1.0) 07/23/17 14:00 Ur Leukocyte Esterase Negative (NEGATIVE) 07/23/17 14:00 RPR Titer Nonreactive (NONREACTIVE) 07/21/17 07:30 HIV 1&2 Antibody Screen Negative 07/21/17 07:30 HIV P24 Antigen Negative 07/21/17 07:30 Vital Signs Temperature 97.7 F 07/24/17 06:43 Pulse Rate 82 07/24/17 06:43 Respiratory Rate 18 07/24/17 06:43 Blood Pressure 125/81 07/24/17 06:43 O2 Sat by Pulse Oximetry (%) - Treatment Hospital Course: Detox Protocol Followed, Detoxed Safely, Responded well, Discharged Condition Good, Rehab Referral Accepted Patient has Accepted a Rehab Referral to: [facility] - Medication Discharge Medications: Ambulatory Orders Sertraline HCl [Zoloft -] 100 mg PO DAILY 11/16/15 Latanoprost 0.005% Eye Drops [Xalatan 0.005% Eye Drops -] 1 drop OU HS #1 drops 11/20/15 Naproxen [Naprosyn] 500 mg PO DAILY 05/04/17 Albuterol Sulfate Inhaler - [Ventolin HFA Inhaler -] 2 puff IH Q4H PRN #1 inhaler 05/07/17 Brimonidine Tartrate [Alphagan 0.2% -] 1 drop OU TID 07/20/17 Famotidine [Pepcid -] 20 mg PO Q12H 07/20/17 Folic Acid - 1 mg PO DAILY 07/20/17 Nicotine Polacrilex [Nicotine Gum] 2 mg BC Q2H PRN 07/20/17 Mirtazapine [Remeron -] 45 mg PO HS #30 tablet 07/21/17 Quetiapine Fumarate [Quetiapine Fumarate ER] 400 mg PO HS #30 tab.er.24h Quetiapine Fumarate [Seroquel -] 200 mg PO AM #30 tablet 07/21/17 Sertraline HCl [Zoloft] 100 mg PO DAILY #30 tablet 07/21/17 - Diagnosis (1) Alcohol dependence with uncomplicated withdrawal Current Visit: Yes Status: Acute (2) Asthma Current Visit: Yes Status: Chronic Qualifiers: Asthma severity: mild Asthma complication type: uncomplicated (3) Cocaine dependence Current Visit: Yes Status: Chronic (4) Glaucoma Current Visit: Yes Status: Chronic Qualifiers: Primary angle closure glaucoma type: unspecified type Laterality: bilateral Glaucoma stage: stage unspecified (5) Nicotine dependence Current Visit: Yes Status: Chronic Qualifiers: Nicotine product type: cigarettes Substance use status: in withdrawal Qualified Code(s): F17.213 - Nicotine dependence, cigarettes, with withdrawal (6) PPD positive, treated Current Visit: Yes Status: Resolved (7) Schizoaffective disorder Current Visit: No Status: Chronic - AMA Did Patient Leave Against Medical Advice: No
[2017-07-24] MEDS: NAPROXEN 500 MG TABLET (FP) PO SCH (09:13)
[2017-07-24] MEDS: SERTRALINE HCL 50 MG TABLET (FP) PO SCH (09:13)
[2017-07-24] MEDS: PANTOPRAZOLE 40 MG TABLET (FP) PO SCH (09:13)
[2017-07-24] MEDS: PRENATAL VITAMINS W/ FOLIC ACID TABLET (FP) PO SCH (09:13)
== END 2017-07-24 09:33 | disposition home or self-care (01) | DRG 774 ==
LOC: YASAS 13:21 → Y6N 17:29
PROVIDERS: ADMIT Surgery; ATTEND Surgery
PROC: HZ2ZZZZ Detoxification Services for Substance Abuse Treatment (ICD-10-PCS; principal; 2017-07-20)
DX: F10.230 Alcohol dependence with withdrawal, uncomplicated (principal); F14.20 Cocaine dependence, uncomplicated; F17.213 Nicotine dependence, cigarettes, with withdrawal; F25.9 Schizoaffective disorder, unspecified; F20.9 Schizophrenia, unspecified; F19.24 Other psychoactive substance dependence with psychoactive substance-induced mood disorder; F19.282 Other psychoactive substance dependence with psychoactive substance-induced sleep disorder; J45.909 Unspecified asthma, uncomplicated; H40.9 Unspecified glaucoma; R76.11 Nonspecific reaction to tuberculin skin test without active tuberculosis; I45.81 Long QT syndrome; K74.60 Unspecified cirrhosis of liver; K21.9 Gastro-esophageal reflux disease without esophagitis; R26.2 Difficulty in walking, not elsewhere classified; E66.9 Obesity, unspecified; Z99.89 Dependence on other enabling machines and devices; Z68.31 Body mass index [BMI] 31.0-31.9, adult; Z91.013 Allergy to seafood
CPT/HCPCS: 36415; 80053; 81003; 82962; 85027; 86593; 87389; 93005; 93010

== ENCOUNTER 2018-04-16 16:53 | Inpatient (IN) | payer OTHER ==
[2018-04-16 20:41] VITALS: BMI 27.8
--- NOTE | 2018-04-16 20:58 | HP ---
CIWA Score Nausea/Vomitin-Mild Nausea/No Vomiting Muscle Tremors: 4-Moderate,w/Arms Extend Anxiety: 4-Mod. Anxious/Guarded Agitation: 4-Moderately Restless Paroxysmal Sweats: 2 Orientation: 0-Oriented Tacttile Disturbances: 0-None Auditory Disturbances: 0-None Visual Disturbances: 0-None Headache: 0-None Present CIWA-Ar Total Score: 15 - Admission Criteria [facility]ASAS Guidelines: Admission for Medically Managed Detox: Requires at least one of the followin. CIWA greater than 12 2. Seizures within the past 24 hours 3. Delirium tremens within the past 24 hours 4. Hallucinations within the past 24 hours 5. Acute intervention needed for co occurring medical disorder 6. Acute intervention needed for co occurring psychiatric disorder 7. Severe withdrawal that cannot be handled at a lower level of care (continued vomiting, continued diarrhea, abnormal vital signs) requiring intravenous medication and/or fluids 8. Admission ROS [facility] Chief Complaint: Alcohol withdrawal symptoms Allergies/Adverse Reactions: Allergies Allergy/AdvReac Type Severity Reaction Status Date / Time fish derived [Fish derived] Allergy Mild Hives Verified 04/16/18 20:43 No Known Drug Allergies Allergy Verified 04/16/18 20:43 NICOTINE PATCH Allergy Severe Rash Uncoded 04/16/18 20:43 History of Present Illness: 58 years old female with a long history of alcohol dependence is seeking admission to detox. Patient has been in previous detox and reports insignificant period of sobriety. She has medical history of Glaucoma, Asthma and depression. Denies suicide attempt and suicidal ideation at this time. Exam Limitations: No Limitations - Ebola screening Have you traveled outside of the country in the last 21 days: No Have you had contact with anyone from an Ebola affected area: No Have you been sick,other than usual withdrawal symptoms: No Do you have a fever: No - Review of Systems Constitutional: Loss of Appetite, Malaise, Night Sweats, Changes in sleep EENT: reports: Sinus Pressure Respiratory: reports: No Symptoms reported Cardiac: reports: No Symptoms Reported GI: reports: No Symptoms Reported : reports: No Symptoms Reported Musculoskeletal: reports: Other (knee pain) Integumentary: reports: Dryness, Flushing Neuro: reports: Tremors Endocrine: reports: No Symptoms Reported, Unexplained Weight Loss Psychiatric: reports: Orientated x3, Depressed Other Systems: Reviewed and Negative Patient History - Patient Medical History Hx Anemia: No Hx Asthma: Yes (Albuterol) Hx Chronic Obstructive Pulmonary Disease (COPD): No Hx Cancer: No Hx Cardiac Disorders: No Hx Congestive Heart Failure: No Hx Hypertension: No Hx Hypercholesterolemia: No Hx Pacemaker: No HX Cerebrovascular Accident: No Hx Seizures: No Hx Dementia: No Hx Diabetes: No Hx Gastrointestinal Disorders: No Hx Liver Disease: No Hx Genitourinary Disorders: No Hx Sexually Transmitted Disorders: No Hx Renal Disease (ESRD): No Hx Thyroid Disease: No Hx Human Immunodeficiency Virus (HIV): No (last 04/03 negative) Hx Hepatitis C: No Hx Depression: Yes (Zoloft ) Hx Suicide Attempt: No (Denies suicidal ideation at this time) Hx Bipolar Disorder: No Hx Schizophrenia: Yes Other Medical History: Glaucoma - Alphagan and Latanoprost eye drops - Patient Surgical History Past Surgical History: Yes Hx Neurologic Surgery: No Hx Cataract Extraction: No Hx Cardiac Surgery: No Hx Lung Surgery: No Hx Breast Surgery: No Hx Breast Biopsy: No Hx Abdominal Surgery: No Hx Appendectomy: No Hx Cholecystectomy: No Hx Genitourinary Surgery: No Hx Section: Yes (X 3 IN 1984, 1997 AND 1998) Hx Orthopedic Surgery: No Hx Hysterectomy: No Anesthesia Reaction: No - PPD History Previous Implant?: No (INH x 8 MONTH) Date: 10/04/16 Results: CXR(-)09/17/16 PPD to be Administered?: No - Reproductive History Patient is a Female of Child Bearing Age (11 -55 yrs old): Yes Last Menstrual Period: 10/16/14 LMP comment: MENOPAUSAL Patient : No - Smoking Cessation Smoking history: Current every day smoker Have you smoked in the past 12 months: Yes Aproximately how many cigarettes per day: 7 Cigars Per Day: 0 Hx Chewing Tobacco Use: No Initiated information on smoking cessation: Yes 'Breaking Loose' booklet given: 04/16/18 - Substance & Tx. History Hx Alcohol Use: Yes Hx Substance Use: Yes Substance Use Type: Alcohol, Cocaine Hx Substance Use Treatment: Yes (RN) - Substances Abused Alcohol Route: Oral Frequency: Daily Amount used: BEER- 2/6 PACKS Age of first use: 18 Date of Last Use: 04/16/18 Cocaine Route: Smoking Frequency: Daily Amount used: $80 Age of first use: 36 Date of Last Use: 04/16/18 Family Disease History - Family Disease History Family Disease History: Diabetes: Mother (HTN), Sister (substance abuse ), Heart Disease: Father (HTN,ALCOHOLIC), Mother, Other: Father, Sister Admission Physical Exam [facility] - Vital Signs Vital Signs: Vital Signs - 24 hr 04/16/18 20:32 Temperature 98.6 F Pulse Rate 68 Respiratory 18 Rate Blood Pressure 106/61 - Physical General Appearance: Yes: Moderate Distress, Tremorous, Sweating, Anxious HEENTM: Yes: Normal ENT Inspection, Normal Voice Respiratory: Yes: Lungs Clear, Normal Breath Sounds, No Respiratory Distress Neck: Yes: Supple Breast: Yes: Breast Exam Deferred Cardiology: Yes: Regular Rhythm, Regular Rate Genitourinary: Yes: Within Normal Limits Back: Yes: Normal Inspection Musculoskeletal: Yes: Other (knee pain) Extremities: Yes: Tremors Integumentary: Yes: Within Normal Limits Lymphatic: Yes: Within Normal Limits - Diagnostic (1) Alcohol dependence with uncomplicated withdrawal Current Visit: No Status: Chronic (2) Asthma Current Visit: No Status: Chronic Qualifiers: Asthma severity: mild Asthma persistence: intermittent Asthma complication type: uncomplicated Qualified Code(s): J45.20 - Mild intermittent asthma, uncomplicated (3) Cocaine dependence Current Visit: No Status: Chronic (4) Glaucoma Current Visit: No Status: Chronic Qualifiers: Primary angle closure glaucoma type: unspecified type Laterality: bilateral Glaucoma stage: stage unspecified (5) History of positive PPD Current Visit: No Status: Chronic (6) Nicotine dependence Current Visit: No Status: Chronic Qualifiers: Nicotine product type: cigarettes Substance use status: uncomplicated Qualified Code(s): F17.210 - Nicotine dependence, cigarettes, uncomplicated Cleared for Admission [facility] - Detox or Rehab [facility] Level of Care: Medically Managed Detox Regimen/Protocol: Librium [facility] Breath Alcohol Content Breath Alcohol Content: 0 Urine Pregancy Test - Result Urine Test Results: Negative- NO Line Present Urine Drug Screen - Results Drug Screen Negative: No Urine Drug Screen Results: [facility]-Cocaine Inpatient Rehab Admission - Rehab Decision to Admit Inpatient rehab admission?: No
[2018-04-16] MEDS ORDERED: guaiFENesin/D-METHORPHAN HB 10 ML UNIT-DOSE CUPS PO PRN (21:04)
[2018-04-16] MEDS ORDERED: MENTHOL/PHENOL 1 EACH UD MM PRN (21:04)
[2018-04-16] MEDS ORDERED: MAGNESIUM CITRATE 300 ML BOTTLE PO PRN (21:04)
[2018-04-16] MEDS ORDERED: chlordiazePOXIDE HCL 25 MG CAPSULE PO PRN (21:04)
[2018-04-16] MEDS ORDERED: P-EPHED 60MG/TRIPROLIDI 2.5MG TABLET PO PRN (21:04)
[2018-04-16] MEDS ORDERED: ACETAMINOPHEN 325 MG TABLET (FP) PO PRN (21:04)
[2018-04-16] MEDS ORDERED: NICOTINE POLACRILEX 2 MG GUM BC PRN (21:04)
[2018-04-16] MEDS ORDERED: MAGNESIUM HYDROX 2400MG/30ML ORAL SUSPENSION 30 ML CUP PO PRN (21:04)
[2018-04-16] MEDS ORDERED: IBUPROFEN 400 MG TABLET (FP) PO PRN (21:04)
[2018-04-16] MEDS ORDERED: MAG HYDROX/AL HYDROX/SIMETH 30 ML UNIT-DOSE CUP PO PRN (21:04)
[2018-04-16] MEDS ORDERED: LOPERAMIDE HCL 2 MG CAPSULE PO PRN (21:04)
[2018-04-16] MEDS ORDERED: ALBUTEROL SO4 8 GM HFA INHALER IH PRN (21:07)
[2018-04-16] MEDS ORDERED: MELATONIN 5 MG TABLETS PO PRN (22:00)
[2018-04-16] MEDS: THIAMINE HCL 100 MG TABLET (FP) PO SCH (22:00)
[2018-04-16] MEDS: LATANOPROST 0.005% OPHTH SOLN 2.5ML BOTTLE OU SCH (22:00)
[2018-04-16] MEDS: chlordiazePOXIDE HCL 25 MG CAPSULE PO SCH (22:02)
[2018-04-16] MEDS: BRIMONIDINE TARTRATE 0.2% OPHTHALMIC 5 ML BOTTLE OU SCH (22:59)
[2018-04-17] MEDS: chlordiazePOXIDE HCL 25 MG CAPSULE PO SCH ×4 (06:04→22:31)
[2018-04-17] MEDS: BRIMONIDINE TARTRATE 0.2% OPHTHALMIC 5 ML BOTTLE OU SCH ×3 (06:59→22:30)
[2018-04-17] MEDS: PRENATAL VITAMINS W/ FOLIC ACID TABLET (FP) PO SCH (10:27)
[2018-04-17 10:48] LABS: HEMATOCRIT 42.7 % (32.4-45.2); HEMOGLOBIN 14.3 GM/dL (10.7-15.3); MCH 28.8 pg (25.7-33.7); MCHC 33.5 g/dl (32.0-36.0); MEAN CELL VOLUME 85.8 fl (80-96); MEAN PLT VOLUME 9.5 fl (7.5-11.1); PLATELET COUNT 237 K/MM3 (134-434); RBC 4.97 M/mm3 (3.60-5.2); RDW 15.7 % (11.6-15.6); WHITE BLOOD COUNT 9.4 K/mm3 (4.0-10.0)
[2018-04-17 11:10] LABS: ALBUMIN 3.4 g/dl (3.4-5.0); ALK PHOS 136 U/L (45-117); ANION GAP 5 MMOL/L (8-16); BILIRUBIN,TOTAL 0.2 mg/dL (0.2-1); BLOOD UREA NITROGEN 14 mg/dL (7-18); CALCIUM 8.5 mg/dL (8.5-10.1); CHLORIDE 106 mmol/L (98-107); CO2 30 mmol/L (21-32); CREATININE 0.9 mg/dL (0.55-1.3); GLUCOSE,RANDOM 97 mg/dL (74-106); SGOT/AST 11 U/L (15-37); SGPT/ALT 19 U/L (13-61); SODIUM 141 mmol/L (136-145); TOT PROT 6.5 g/dl (6.4-8.2)
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
[2018-04-17] MEDS: SERTRALINE HCL 50 MG TABLET (FP) PO SCH (14:06)
--- NOTE | 2018-04-17 15:27 | PN ---
S CIWA - CIWA Score Nausea/Vomitin Muscle Tremors: 4-Moderate,w/Arms Extend Anxiety: 4-Mod. Anxious/Guarded Agitation: 4-Moderately Restless Paroxysmal Sweats: 3 Orientation: 0-Oriented Tacttile Disturbances: 0-None Auditory Disturbances: 0-None Visual Disturbances: 0-None Headache: 0-None Present CIWA-Ar Total Score: 17 [facility] Progress Note (SOAP) Subjective: Nausea Objective: 04/17/18 15:26 Last Vital Signs Temp Pulse Resp BP Pulse Ox 98.1 F 75 20 118/78 04/17/18 07:45 04/17/18 07:45 04/17/18 07:45 04/17/18 07:45 Laboratory Tests 04/17/18 04/17/18 04/17/18 07:35 07:35 07:50 WBC 9.4 RBC 4.97 Hgb 14.3 Hct 42.7 MCV 85.8 MCH 28.8 MCHC 33.5 RDW 15.7 H Plt Count 237 MPV 9.5 Sodium 141 Potassium 4.0 Chloride 106 Carbon Dioxide 30 Anion Gap 5 L BUN 14 Creatinine 0.9 Creat Clearance w eGFR > 60 Random Glucose 97 Calcium 8.5 Total Bilirubin 0.2 AST 11 L ALT 19 Alkaline Phosphatase 136 H Total Protein 6.5 Albumin 3.4 RPR Titer Nonreactive Labs reviewed Assessment: 04/17/18 15:26 Withdrawal symptoms Plan: Continue detox Encouraged PO water hydration
[2018-04-17] MEDS: LATANOPROST 0.005% OPHTH SOLN 2.5ML BOTTLE OU SCH (22:31)
[2018-04-17] MEDS: MIRTAZAPINE 30 MG TABLET (FP) PO SCH (22:31)
[2018-04-17] MEDS: QUEtiapine FUMARATE 200 MG TABLET PO SCH (22:31)
[2018-04-17] MEDS: THIAMINE HCL 100 MG TABLET (FP) PO SCH (22:31)
[2018-04-18] MEDS: chlordiazePOXIDE HCL 25 MG CAPSULE PO SCH ×3 (07:37→17:32)
[2018-04-18] MEDS: BRIMONIDINE TARTRATE 0.2% OPHTHALMIC 5 ML BOTTLE OU SCH ×3 (07:37→22:21)
[2018-04-18] MEDS: SERTRALINE HCL 50 MG TABLET (FP) PO SCH (10:15)
[2018-04-18] MEDS: PRENATAL VITAMINS W/ FOLIC ACID TABLET (FP) PO SCH (10:15)
--- NOTE | 2018-04-18 11:13 | PN ---
[facility] CIWA - CIWA Score Nausea/Vomitin-No Nausea/No Vomiting Muscle Tremors: 3 Anxiety: 3 Agitation: 3 Paroxysmal Sweats: 2 Orientation: 0-Oriented Tacttile Disturbances: 0-None Auditory Disturbances: 0-None Visual Disturbances: 0-None Headache: 0-None Present CIWA-Ar Total Score: 11 [facility] Progress Note (SOAP) Subjective: sweats chills body aches interrupted sleep irritable Objective: 04/18/18 11:12 Vital Signs Temperature 98.1 F 04/18/18 09:31 Pulse Rate 85 04/18/18 09:31 Respiratory Rate 18 04/18/18 09:31 Blood Pressure 114/72 04/18/18 09:31 O2 Sat by Pulse Oximetry (%) Laboratory Tests 04/17/18 04/17/18 04/17/18 07:35 07:35 07:50 WBC 9.4 RBC 4.97 Hgb 14.3 Hct 42.7 MCV 85.8 MCH 28.8 MCHC 33.5 RDW 15.7 H Plt Count 237 MPV 9.5 Sodium 141 Potassium 4.0 Chloride 106 Carbon Dioxide 30 Anion Gap 5 L BUN 14 Creatinine 0.9 Creat Clearance w eGFR > 60 Random Glucose 97 Calcium 8.5 Total Bilirubin 0.2 AST 11 L ALT 19 Alkaline Phosphatase 136 H Total Protein 6.5 Albumin 3.4 RPR Titer Nonreactive aaox3 ambulating no acute distress Assessment: 04/18/18 11:13 withdrawal sx Plan: continue detox increase fluids
[2018-04-18] MEDS: LATANOPROST 0.005% OPHTH SOLN 2.5ML BOTTLE OU SCH (22:10)
[2018-04-18] MEDS: QUEtiapine FUMARATE 200 MG TABLET PO SCH (22:11)
[2018-04-18] MEDS: MIRTAZAPINE 30 MG TABLET (FP) PO SCH (22:11)
[2018-04-18] MEDS: chlordiazePOXIDE 5 MG CAPSULE PO SCH (22:11)
[2018-04-18] MEDS: THIAMINE HCL 100 MG TABLET (FP) PO SCH (22:12)
[2018-04-19] MEDS: chlordiazePOXIDE 5 MG CAPSULE PO SCH ×3 (05:16→17:22)
[2018-04-19] MEDS: BRIMONIDINE TARTRATE 0.2% OPHTHALMIC 5 ML BOTTLE OU SCH ×3 (05:17→22:12)
--- NOTE | 2018-04-19 09:55 | PN ---
[facility] Progress Note (SOAP) Subjective: sweats feeling better Objective: 04/19/18 09:55 Vital Signs Temperature 97.9 F 04/19/18 09:36 Pulse Rate 73 04/19/18 09:36 Respiratory Rate 18 04/19/18 09:36 Blood Pressure 104/69 04/19/18 09:36 O2 Sat by Pulse Oximetry (%) aaox3 ambulating no acute distress Assessment: 04/19/18 09:55 withdrawal sx Plan: continue detox increase fluids d/c in am
[2018-04-19] MEDS: PRENATAL VITAMINS W/ FOLIC ACID TABLET (FP) PO SCH (11:29)
[2018-04-19] MEDS: SERTRALINE HCL 50 MG TABLET (FP) PO SCH (11:30)
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
[2018-04-19] MEDS: LATANOPROST 0.005% OPHTH SOLN 2.5ML BOTTLE OU SCH (22:12)
[2018-04-19] MEDS: QUEtiapine FUMARATE 200 MG TABLET PO SCH (22:13)
[2018-04-19] MEDS: chlordiazePOXIDE HCL 10 MG CAPSULE PO SCH (22:13)
[2018-04-19] MEDS: MIRTAZAPINE 30 MG TABLET (FP) PO SCH (22:13)
[2018-04-19] MEDS: THIAMINE HCL 100 MG TABLET (FP) PO SCH (22:13)
[2018-04-20] MEDS: BRIMONIDINE TARTRATE 0.2% OPHTHALMIC 5 ML BOTTLE OU SCH (06:37)
[2018-04-20] MEDS: chlordiazePOXIDE HCL 10 MG CAPSULE PO SCH (06:37)
[2018-04-20 08:21] VITALS: BP 103/69; PULSE 67; TEMP 97.9
--- NOTE | 2018-04-20 10:12 | DS ---
[facility] Detox Discharge Summary Admission Date: 04/16/18 Discharge Date: 04/20/18 - History Present History: Alcohol Dependence, Cocaine Dependence - Physical Exam Results Vital Signs: Vital Signs Temperature 97.9 F 04/20/18 08:20 Pulse Rate 67 04/20/18 08:20 Respiratory Rate 18 04/20/18 08:20 Blood Pressure 103/69 04/20/18 08:20 O2 Sat by Pulse Oximetry (%) - Treatment Hospital Course: Detox Protocol Followed, Detoxed Safely, Responded well, Discharged Condition Good, Rehab Referral Accepted - Medication Discharge Medications: Ambulatory Orders Sertraline HCl [Zoloft -] 100 mg PO DAILY 11/16/15 Latanoprost 0.005% Eye Drops [Xalatan 0.005% Eye Drops -] 1 drop OU HS #1 drops 11/20/15 Albuterol Sulfate Inhaler - [Ventolin HFA Inhaler -] 2 puff IH Q4H PRN #1 inhaler 05/07/17 Brimonidine Tartrate [Alphagan 0.2% -] 1 drop OU TID 07/20/17 Mirtazapine [Remeron -] 45 mg PO HS #30 tablet 07/21/17 Quetiapine Fumarate [Quetiapine Fumarate ER] 400 mg PO HS #30 tab.er.24h Quetiapine Fumarate [Seroquel -] 200 mg PO AM #30 tablet 07/21/17 - Diagnosis (1) Walker as ambulation aid Status: Chronic (2) Alcohol dependence with uncomplicated withdrawal Status: Chronic (3) Asthma Status: Chronic Qualifiers: Asthma severity: mild Asthma persistence: intermittent Asthma complication type: uncomplicated Qualified Code(s): J45.20 - Mild intermittent asthma, uncomplicated (4) Cocaine dependence Status: Chronic (5) Glaucoma Status: Chronic Qualifiers: Primary angle closure glaucoma type: unspecified type Laterality: bilateral Glaucoma stage: stage unspecified (6) History of positive PPD Status: Chronic (7) Nicotine dependence Status: Chronic Qualifiers: Nicotine product type: cigarettes Substance use status: uncomplicated Qualified Code(s): F17.210 - Nicotine dependence, cigarettes, uncomplicated (8) Schizoaffective disorder Status: Chronic (9) Substance induced mood disorder Status: Chronic (10) Substance-induced sleep disorder Status: Chronic (11) bipolar disorder Status: Chronic (12) Psychiatric disorder Status: Suspected (13) Schizophrenia Status: Suspected Qualifiers: Schizophrenia type: unspecified Qualified Code(s): F20.9 - Schizophrenia, unspecified - AMA Did Patient Leave Against Medical Advice: No (going home then out patient)
== END 2018-04-20 08:49 | disposition home or self-care (01) | DRG 774 ==
LOC: YASAS 16:53 → Y6N 21:00
PROVIDERS: ADMIT Surgery; ATTEND Surgery
PROC: HZ2ZZZZ Detoxification Services for Substance Abuse Treatment (ICD-10-PCS; principal; 2018-04-16)
DX: F10.230 Alcohol dependence with withdrawal, uncomplicated (principal); F14.20 Cocaine dependence, uncomplicated; F17.210 Nicotine dependence, cigarettes, uncomplicated; F25.9 Schizoaffective disorder, unspecified; F29 Unspecified psychosis not due to a substance or known physiological condition; F19.24 Other psychoactive substance dependence with psychoactive substance-induced mood disorder; F19.282 Other psychoactive substance dependence with psychoactive substance-induced sleep disorder; F31.9 Bipolar disorder, unspecified; J45.20 Mild intermittent asthma, uncomplicated; L40.9 Psoriasis, unspecified; R76.11 Nonspecific reaction to tuberculin skin test without active tuberculosis; R26.2 Difficulty in walking, not elsewhere classified; Z99.89 Dependence on other enabling machines and devices; Z91.013 Allergy to seafood; Y04.0XXA Assault by unarmed brawl or fight, initial encounter; Y93.89 Activity, other specified; Y92.238 Other place in hospital as the place of occurrence of the external cause
CPT/HCPCS: 36415; 71046-TC-FY; 80053; 85027; 86593

== ENCOUNTER 2018-10-14 12:30 | Inpatient (IN) | payer OTHER ==
[2018-10-14 14:09] VITALS: BMI 24.1
--- NOTE | 2018-10-14 15:45 | HP ---
CIWA Score Nausea/Vomitin-Mild Nausea/No Vomiting Muscle Tremors: 4-Moderate,w/Arms Extend Anxiety: 3 Agitation: 2 Paroxysmal Sweats: 1-Minimal Palms Moist Orientation: 0-Oriented Tacttile Disturbances: 0-None Auditory Disturbances: 0-None Visual Disturbances: 0-None Headache: 2-Mild CIWA-Ar Total Score: 13 - Admission Criteria OASAS Guidelines: Admission for Medically Managed Detox: Requires at least one of the followin. CIWA greater than 12 2. Seizures within the past 24 hours 3. Delirium tremens within the past 24 hours 4. Hallucinations within the past 24 hours 5. Acute intervention needed for co occurring medical disorder 6. Acute intervention needed for co occurring psychiatric disorder 7. Severe withdrawal that cannot be handled at a lower level of care (continued vomiting, continued diarrhea, abnormal vital signs) requiring intravenous medication and/or fluids 8. Admission ROS [facility] Chief Complaint: Detox EtOH Allergies/Adverse Reactions: Allergies Allergy/AdvReac Type Severity Reaction Status Date / [facility] Allergy Severe Rash Verified 10/14/18 17:12 fish derived [Fish derived] Allergy Mild Hives Verified 10/14/18 13:54 No Known Drug Allergies Allergy Verified 10/14/18 13:54 NICOTINE PATCH Allergy Severe Rash Uncoded 10/14/18 13:54 History of Present Illness: 58F w/ pmh of asthma, glaucoma referred to [facility] for EtOH detox or else she would lose her supportive housing-funded apt in [facility]. Started drinking at 17y/o. Drinks 8cans of beer/daily. Last drink was this afternoon, prior to evaluation. No h/o seizures. Blacked out 4ys prior. Smokes crack q weekly. Smokes 0.25 ppd. Denies IVDU. Tried detox multiple times in the past but always recurs due to personal relationship issues. - Ebola screening Have you traveled outside of the country in the last 21 days: No (N) Have you had contact with anyone from an Ebola affected area: No Do you have a fever: No - Review of Systems EENT: denies: Blurred Vision, Double Vision, Difficulty Swallowing Respiratory: denies: Cough, Shortness of Breath Cardiac: denies: Chest Pain, Irregular Heart Rate, Palpitations, Chest Tightness GI: reports: Nausea, Abdominal cramping. denies: Abdominal Distended, Constipated, Diarrhea : denies: Burning, Urgency Musculoskeletal: denies: Back Pain, Muscle Weakness Integumentary: reports: Sweating Neuro: reports: Headache, Tremors. denies: Seizure Patient History - Patient Medical History Hx Anemia: No Hx Asthma: Yes (Albuterol) Hx Chronic Obstructive Pulmonary Disease (COPD): No Hx Cancer: No Hx Cardiac Disorders: No Hx Congestive Heart Failure: No Hx Hypertension: No Hx Hypercholesterolemia: No Hx Pacemaker: No HX Cerebrovascular Accident: No Hx Seizures: No Hx Dementia: No Hx Diabetes: No Hx Gastrointestinal Disorders: No Hx Liver Disease: No Hx Genitourinary Disorders: No Hx Sexually Transmitted Disorders: No Hx Renal Disease (ESRD): No Hx Thyroid Disease: No Hx Human Immunodeficiency Virus (HIV): No (last 04/03 negative) Hx Hepatitis C: No Hx Depression: Yes (Zoloft ) Hx Suicide Attempt: No (Denies suicidal ideation at this time) Hx Bipolar Disorder: No Hx Schizophrenia: Yes - Patient Surgical History Past Surgical History: Yes Hx Neurologic Surgery: No Hx Cataract Extraction: No Hx Cardiac Surgery: No Hx Lung Surgery: No Hx Breast Surgery: No Hx Breast Biopsy: No Hx Abdominal Surgery: No Hx Appendectomy: No Hx Cholecystectomy: No Hx Genitourinary Surgery: No Hx Section: Yes (X 3 IN 1984, 1997 AND 1998) Hx Orthopedic Surgery: No Hx Hysterectomy: No Anesthesia Reaction: No - PPD History Date: 10/04/16 Results: CXR(-)09/17/16 - Reproductive History Last Menstrual Period: 10/16/14 - Smoking Cessation Smoking history: Current every day smoker Have you smoked in the past 12 months: Yes Aproximately how many cigarettes per day: 7 Cigars Per Day: 0 Hx Chewing Tobacco Use: No Initiated information on smoking cessation: No - Substances abused Alcohol Substance route: Oral Frequency: Daily Amount used: 12 CANS OF BEER Age of first use: 17 Date of last use: 10/14/18 Family Disease History - Family Disease History Family Disease History: Diabetes: Mother (HTN), Sister (substance abuse ), Heart Disease: Father (HTN,ALCOHOLIC), Mother, Other: Father, Sister Admission Physical Exam BHS - Vital Signs Vital Signs: Vital Signs - 24 hr 10/14/18 13:51 Temperature 98.4 F Pulse Rate 84 Respiratory 20 Rate Blood Pressure 126/80 - Physical General Appearance: Yes: Thin, Irritable. No: Mild Distress HEENTM: Yes: Normocephalic. No: Pale Conjunctivae R, Pale Conjunctivae L, Scleral Ictenus R, Scleral Ictenus L Respiratory: Yes: Lungs Clear, No Accessory Muscle Use. No: Labored Respiration , Rapid RR, Stridor, Wheezing Neck: Yes: No masses,lesions,Nodules, Trachea in good position Cardiology: Yes: Regular Rate, S1, S2. No: Bradycardia, Tachycardia, Irregularly Irregular Abdominal: Yes: Soft. No: Guarding, Rebound, Tenderness Musculoskeletal: Yes: full range of Motion, Other (Right ankle swelling) Extremities: No: Coldness, Calf Tenderness Neurological: Yes: Fully Oriented, Alert Integumentary: Yes: Dry, Warm Breathalyzer - Breathalyzer Breathalyzer: 0.022 Urine Drug Screen - Test Device Lot number: [id number] Expiration date: 07/15/20 - Control Is test valid?: Yes - Results Drug screen NEGATIVE: No Urine drug screen results: [facility] Inpatient Rehab Admission - Rehab Decision to Admit Inpatient rehab admission?: No
[2018-10-14] MEDS ORDERED: BISMUTH SUBSALICYLATE 524 MG/30 ML UD PO PRN (16:05)
[2018-10-14] MEDS ORDERED: MAGNESIUM HYDROX 2400MG/30ML ORAL SUSPENSION 30 ML CUP PO PRN (16:05)
[2018-10-14] MEDS ORDERED: MAGNESIUM CITRATE 300 ML BOTTLE PO PRN (16:05)
[2018-10-14] MEDS ORDERED: ACETAMINOPHEN 325 MG TABLET (FP) PO PRN ×2 (16:05)
[2018-10-14] MEDS ORDERED: IBUPROFEN 400 MG TABLET (FP) PO PRN (16:05)
[2018-10-14] MEDS ORDERED: MELATONIN 5 MG TABLETS PO PRN (16:05)
[2018-10-14] MEDS ORDERED: NICOTINE POLACRILEX 2 MG GUM BUC PRN (16:05)
[2018-10-14] MEDS ORDERED: hydrOXYzine PAMOATE 25 MG CAPSULE (FP) PO PRN (16:05)
[2018-10-14] MEDS ORDERED: MAG HYDROX/AL HYDROX/SIMETH 30 ML UNIT-DOSE CUP PO PRN (16:05)
[2018-10-14] MEDS ORDERED: MENTHOL/PHENOL 1 EACH UD MM PRN (16:05)
--- NOTE | 2018-10-14 16:05 | PN ---
Teaching Attending Note Name of Resident: Gigi Grimes ATTENDING PHYSICIAN STATEMENT I saw and evaluated the patient. I reviewed the resident's note and discussed the case with the resident. I agree with the resident's findings and plan as documented. SUBJECTIVE: 58 y.o. female patient here requesting detox from etoh use , reports 8 beers/ day , first age of use 17 ,r eferred by housing 2/2 ongoing intoxication and per pt " acting crazy " when drinking alcohol, latest use today , current LO 0.22 . + Blackouts, tremors, denies seizures . PMHX : asthma, glaucoma PSHX : c-sx x 3 , adult children , 6 g-k . PSych : SAD , denies SI / Hi . OBJECTIVE: ETOH intoxication , mild w/d . Vital Signs - 24 hr 10/14/18 13:51 Temperature 98.4 F Pulse Rate 84 Respiratory 20 Rate Blood Pressure 126/80 ASSESSMENT AND PLAN: AUD - Valium protocol . encouraged participation in rehab .
[2018-10-14] MEDS ORDERED: ALBUTEROL SO4 8 GM HFA INHALER IH PRN (16:06)
[2018-10-14] MEDS ORDERED: diazePAM 5 MG TABLET PO PRN (16:08)
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
--- NOTE | 2018-10-14 21:08 | DS ---
[facility] Detox Discharge Summary Admission Date: 10/14/18 Discharge Date: 10/14/18 - History Present History: Alcohol Dependence Additional Comments: Admitted w/ alcohol withdrawal symptoms. - Physical Exam Results Vital Signs: Vital Signs Temperature 98.4 F 10/14/18 13:51 Pulse Rate 84 10/14/18 13:51 Respiratory Rate 20 10/14/18 13:51 Blood Pressure 126/80 10/14/18 13:51 O2 Sat by Pulse Oximetry (%) Pertinent Admission Physical Exam Findings: Hx asthma, glaucoma on medications. - Treatment Hospital Course: Discharged Condition Good (Alert and oriented. Gait steady. No tremors. Agitated w/ CIWA = 4) - Medication Discharge Medications: Ambulatory Orders Sertraline HCl [Zoloft -] 200 mg PO DAILY 11/16/15 Albuterol Sulfate Inhaler - [Ventolin HFA Inhaler -] 2 puff IH Q4H PRN #1 inhaler 05/07/17 Brimonidine Tartrate [Alphagan 0.2% -] 1 drop OU HS 07/20/17 Mirtazapine [Remeron -] 45 mg PO HS #30 tablet 07/21/17 Quetiapine Fumarate [Seroquel -] 200 mg PO AM #30 tablet 07/21/17 Latanoprost 0.005% Eye Drops [Xalatan 0.005% Eye Drops -] 1 drop OU TID Quetiapine Fumarate [Quetiapine Fumarate ER] 200 mg PO HS 10/14/18 - Diagnosis (1) Alcohol dependence with uncomplicated withdrawal Current Visit: Yes Status: Acute (2) History of asthma Current Visit: Yes Status: Chronic (3) Glaucoma Current Visit: Yes Status: Chronic Qualifiers: Glaucoma type: unspecified Laterality: bilateral Qualified Code(s): H40.9 - Unspecified glaucoma - AMA Did Patient Leave Against Medical Advice: No (Patient was Administratively discharged. )
[2018-10-14 21:38] VITALS: BP 136/75; PULSE 83; TEMP 98.2
[2018-10-14] MEDS ORDERED: THIAMINE HCL 100 MG TABLET (FP) PO SCH (22:00)
[2018-10-14] MEDS ORDERED: BRIMONIDINE TARTRATE 0.2% OPHTHALMIC 5 ML BOTTLE OU SCH (22:00)
[2018-10-14] MEDS ORDERED: LATANOPROST 0.005% OPHTH SOLN 2.5ML BOTTLE OU SCH (22:00)
[2018-10-14] MEDS ORDERED: diazePAM 5 MG TABLET PO SCH (22:00)
[2018-10-15] MEDS ORDERED: PRENATAL VITAMINS W/ FOLIC ACID TABLET (FP) PO SCH (10:00)
[2018-10-16] MEDS ORDERED: diazePAM 5 MG TABLET PO SCH (06:00)
[2018-10-17] MEDS ORDERED: diazePAM 5 MG TABLET PO ONE (06:00)
== END 2018-10-14 20:33 | disposition home or self-care (01) | DRG 775 ==
LOC: YASAS 12:30 → Y6N 17:05
PROVIDERS: ADMIT Surgery; ATTEND Surgery
PROC: HZ2ZZZZ Detoxification Services for Substance Abuse Treatment (ICD-10-PCS; principal; 2018-10-14)
DX: F10.230 Alcohol dependence with withdrawal, uncomplicated (principal); F17.210 Nicotine dependence, cigarettes, uncomplicated; F20.9 Schizophrenia, unspecified; F32.9 Major depressive disorder, single episode, unspecified; H40.9 Unspecified glaucoma; J45.909 Unspecified asthma, uncomplicated
CPT/HCPCS: 81025

== ENCOUNTER 2022-07-05 23:00 | Inpatient (IN) | payer OTHER ==
[2022-07-05 23:32] VITALS: BMI 19.7
[2022-07-06] MEDS ORDERED: ONDANSETRON *ODT* 4 MG TABLET SL PRN (00:02)
[2022-07-06] MEDS ORDERED: LOPERAMIDE HCL 2 MG CAPSULE PO PRN (00:02)
[2022-07-06] MEDS ORDERED: MAGNESIUM HYDROX 2400MG/30ML ORAL SUSPENSION 30 ML CUP PO PRN (00:02)
[2022-07-06] MEDS ORDERED: hydrOXYzine PAMOATE 25 MG CAPSULE (FP) PO PRN (00:02)
[2022-07-06] MEDS ORDERED: NALOXONE HCL (KLOXXADO) 8 MG SPRAY NS PRN (00:02)
[2022-07-06] MEDS ORDERED: POLYETHYLENE GLYCOL (HEALTHYLAX) 3350 17 GM PACKET PO PRN (00:02)
[2022-07-06] MEDS ORDERED: BENZONATATE 200 MG CAPSULE PO PRN (00:02)
[2022-07-06] MEDS ORDERED: BENZOCAINE/MENTHOL (CHLORASEPTIC ) LOZENGE MM PRN (00:02)
[2022-07-06] MEDS ORDERED: P-EPHED 60MG/TRIPROLIDI 2.5MG TABLET PO PRN (00:02)
[2022-07-06] MEDS ORDERED: MAG HYDROX/AL HYDROX/SIMETH 30 ML UNIT-DOSE CUP PO PRN (00:02)
[2022-07-06] MEDS ORDERED: ACETAMINOPHEN 325 MG TABLET (FP) PO PRN (00:02)
[2022-07-06] MEDS ORDERED: NALOXONE HCL 0.4 MG/ML VIAL IM PRN (00:02)
[2022-07-06] MEDS ORDERED: guaiFENesin 600 MG TABLET.ER (FP) PO PRN (00:02)
[2022-07-06] MEDS ORDERED: IBUPROFEN 400 MG TABLET (FP) PO PRN (00:02)
[2022-07-06] MEDS ORDERED: DICYCLOMINE HCL 10 MG CAPSULE PO PRN (00:02)
[2022-07-06] MEDS ORDERED: BISMUTH SUBSALICYLATE 524 MG/30 ML PO PRN (00:02)
[2022-07-06] MEDS: BRIMONIDINE TARTRATE 0.2% OPHTHALMIC 5 ML BOTTLE OU SCH ×3 (07:05→22:14)
[2022-07-06] MEDS ORDERED: chlordiazePOXIDE HCL 25 MG CAPSULE PO PRN (09:36)
[2022-07-06 09:47] LABS: HEMOGLOBIN 12.7 GM/dL (10.7-15.3); MCH 28.1 pg (25.7-33.7); MCHC 33.5 g/dl (32.0-36.0); MEAN CELL VOLUME 83.9 fl (80-96); MEAN PLT VOLUME 10.6 fl (7.5-11.1); PLATELET COUNT 188 10^3/uL (134-434); RBC 4.53 M/mm3 (3.60-5.2); RDW 14.3 % (11.6-15.6); WHITE BLOOD COUNT 8.6 K/mm3 (4.0-10.0)
[2022-07-06] MEDS: chlordiazePOXIDE HCL 25 MG CAPSULE PO SCH ×3 (10:06→22:15)
[2022-07-06] MEDS: PRENATAL VITAMINS W/ FOLIC ACID TABLET (FP) PO SCH (10:06)
[2022-07-06 10:10] LABS: BLOOD UREA NITROGEN 16.6 mg/dL (7-18); CALCIUM 8.5 mg/dL (8.5-10.1)
[2022-07-06 10:11] LABS: ALBUMIN 2.9 g/dl (3.4-5.0)
[2022-07-06 10:14] LABS: CREATININE 0.8 mg/dL (0.55-1.3)
[2022-07-06 10:15] LABS: BILIRUBIN,TOTAL 0.3 mg/dL (0.2-1); TOT PROT 5.5 g/dl (6.4-8.2)
[2022-07-06] MEDS: MELATONIN 5 MG TABLETS PO SCH (22:14)
[2022-07-06] MEDS: QUEtiapine FUMARATE 200 MG TABLET PO SCH (22:14)
[2022-07-06] MEDS: THIAMINE HCL 100 MG TABLET (FP) PO SCH (22:14)
[2022-07-06] MEDS: MIRTAZAPINE 15 MG TABLET (FP) PO SCH (22:14)
[2022-07-06] MEDS: LATANOPROST 0.005% OPHTH SOLN 2.5ML BOTTLE OU SCH (22:15)
[2022-07-07] MEDS: BRIMONIDINE TARTRATE 0.2% OPHTHALMIC 5 ML BOTTLE OU SCH ×3 (05:25→22:57)
[2022-07-07] MEDS: chlordiazePOXIDE HCL 25 MG CAPSULE PO SCH ×4 (05:26→23:01)
[2022-07-07] MEDS: PRENATAL VITAMINS W/ FOLIC ACID TABLET (FP) PO SCH (10:27)
[2022-07-07] MEDS: SERTRALINE HCL 50 MG TABLET (FP) PO SCH (10:28)
[2022-07-07] MEDS: QUEtiapine FUMARATE 100 MG TABLET (FP) PO SCH (10:28)
[2022-07-07 11:38] LABS: HEMATOCRIT 39.2 % (32.4-45.2); HEMOGLOBIN 13.1 GM/dL (10.7-15.3); MCH 28.5 pg (25.7-33.7); MCHC 33.4 g/dl (32.0-36.0); MEAN CELL VOLUME 85.3 fl (80-96); MEAN PLT VOLUME 10.5 fl (7.5-11.1); PLATELET COUNT 196 10^3/uL (134-434); RDW 14.8 % (11.6-15.6); WHITE BLOOD COUNT 6.2 K/mm3 (4.0-10.0)
[2022-07-07 11:48] LABS: POTASSIUM 4.7 mmol/L (3.5-5.1)
[2022-07-07 11:50] LABS: BLOOD UREA NITROGEN 11.4 mg/dL (7-18); CALCIUM 9.3 mg/dL (8.5-10.1)
[2022-07-07 11:52] LABS: CREATININE 0.6 mg/dL (0.55-1.3)
[2022-07-07 11:54] LABS: BILIRUBIN,TOTAL 0.1 mg/dL (0.2-1); TOT PROT 5.8 g/dl (6.4-8.2)
[2022-07-07] MEDS: MELATONIN 5 MG TABLETS PO SCH (22:59)
[2022-07-07] MEDS: MIRTAZAPINE 15 MG TABLET (FP) PO SCH (22:59)
[2022-07-07] MEDS: QUEtiapine FUMARATE 200 MG TABLET PO SCH (23:00)
[2022-07-07] MEDS: THIAMINE HCL 100 MG TABLET (FP) PO SCH (23:00)
[2022-07-07] MEDS: LATANOPROST 0.005% OPHTH SOLN 2.5ML BOTTLE OU SCH (23:02)
[2022-07-08] MEDS: chlordiazePOXIDE HCL 25 MG CAPSULE PO SCH ×4 (06:00→22:41)
[2022-07-08] MEDS: BRIMONIDINE TARTRATE 0.2% OPHTHALMIC 5 ML BOTTLE OU SCH ×3 (06:33→22:49)
[2022-07-08] MEDS: IBUPROFEN 600 MG TABLET (FP) PO PRN (06:35)
[2022-07-08] MEDS: SERTRALINE HCL 50 MG TABLET (FP) PO SCH (10:28)
[2022-07-08] MEDS: PRENATAL VITAMINS W/ FOLIC ACID TABLET (FP) PO SCH (10:29)
[2022-07-08] MEDS: QUEtiapine FUMARATE 100 MG TABLET (FP) PO SCH (10:29)
[2022-07-08] MEDS: MELATONIN 5 MG TABLETS PO SCH (22:41)
[2022-07-08] MEDS: THIAMINE HCL 100 MG TABLET (FP) PO SCH (22:42)
[2022-07-08] MEDS: LATANOPROST 0.005% OPHTH SOLN 2.5ML BOTTLE OU SCH (22:42)
[2022-07-08] MEDS: MIRTAZAPINE 15 MG TABLET (FP) PO SCH (22:42)
[2022-07-08] MEDS: QUEtiapine FUMARATE 200 MG TABLET PO SCH (22:42)
[2022-07-09] MEDS ORDERED: chlordiazePOXIDE HCL 10 MG CAPSULE PO PRN
[2022-07-09] MEDS: chlordiazePOXIDE HCL 10 MG CAPSULE PO SCH ×3 (05:25→23:10)
[2022-07-09] MEDS: IBUPROFEN 600 MG TABLET (FP) PO PRN (05:27)
[2022-07-09] MEDS: BRIMONIDINE TARTRATE 0.2% OPHTHALMIC 5 ML BOTTLE OU SCH ×3 (05:28→23:10)
[2022-07-09] MEDS: QUEtiapine FUMARATE 100 MG TABLET (FP) PO SCH (10:10)
[2022-07-09] MEDS: PRENATAL VITAMINS W/ FOLIC ACID TABLET (FP) PO SCH (10:10)
[2022-07-09] MEDS: SERTRALINE HCL 50 MG TABLET (FP) PO SCH (10:10)
[2022-07-09 12:55] VITALS: RESP 18
[2022-07-09 22:07] VITALS: BP 92/55; PULSE 77; TEMP 97.5
[2022-07-09] MEDS: LATANOPROST 0.005% OPHTH SOLN 2.5ML BOTTLE OU SCH (23:11)
[2022-07-09] MEDS: THIAMINE HCL 100 MG TABLET (FP) PO SCH (23:11)
[2022-07-09] MEDS: QUEtiapine FUMARATE 200 MG TABLET PO SCH (23:11)
[2022-07-09] MEDS: MELATONIN 5 MG TABLETS PO SCH (23:11)
[2022-07-09] MEDS: MIRTAZAPINE 15 MG TABLET (FP) PO SCH (23:11)
[2022-07-10] MEDS ORDERED: chlordiazePOXIDE HCL 10 MG CAPSULE PO SCH (05:00)
[2022-07-11] MEDS ORDERED: chlordiazePOXIDE HCL 10 MG CAPSULE PO ONE (05:00)
== END 2022-07-09 18:35 | disposition home or self-care (01) | DRG 774 ==
LOC: YASAS 23:00 → Y3N 07-06 01:07
PROVIDERS: ADMIT Allergy & Immunology; ATTEND Allergy & Immunology
PROC: HZ2ZZZZ Detoxification Services for Substance Abuse Treatment (ICD-10-PCS; principal; 2022-07-06)
DX: F10.230 Alcohol dependence with withdrawal, uncomplicated (principal); F14.20 Cocaine dependence, uncomplicated; F17.210 Nicotine dependence, cigarettes, uncomplicated; F25.9 Schizoaffective disorder, unspecified; G47.00 Insomnia, unspecified; Z62.810 Personal history of physical and sexual abuse in childhood; Z91.410 Personal history of adult physical and sexual abuse
CPT/HCPCS: 36415; 80053; 85027; 86780; C9803-CS; U0003; U0005

== ENCOUNTER 2023-03-18 21:03 | Inpatient (IN) | payer OTHER ==
[2023-03-18 22:41] VITALS: BMI 18.8
[2023-03-19] MEDS ORDERED: guaiFENesin 600 MG TABLET.ER (FP) PO PRN (01:00)
[2023-03-19] MEDS ORDERED: LOPERAMIDE HCL 2 MG CAPSULE PO PRN (01:00)
[2023-03-19] MEDS ORDERED: MAG HYDROX/AL HYDROX/SIMETH 30 ML UNIT-DOSE CUP PO PRN (01:00)
[2023-03-19] MEDS ORDERED: BENZONATATE 200 MG CAPSULE PO PRN (01:00)
[2023-03-19] MEDS ORDERED: ONDANSETRON *ODT* 4 MG TABLET SL PRN (01:00)
[2023-03-19] MEDS ORDERED: NALOXONE HCL (KLOXXADO) 8 MG SPRAY NS PRN (01:00)
[2023-03-19] MEDS ORDERED: BENZOCAINE/MENTHOL (CHLORASEPTIC ) LOZENGE MM PRN (01:00)
[2023-03-19] MEDS ORDERED: BISMUTH SUBSALICYLATE 524 MG/30 ML PO PRN (01:00)
[2023-03-19] MEDS ORDERED: MAGNESIUM HYDROX 2400MG/30ML ORAL SUSPENSION 30 ML CUP PO PRN (01:00)
[2023-03-19] MEDS ORDERED: ACETAMINOPHEN 325 MG TABLET (FP) PO PRN (01:00)
[2023-03-19] MEDS ORDERED: IBUPROFEN 400 MG TABLET (FP) PO PRN (01:00)
[2023-03-19] MEDS ORDERED: NALOXONE HCL 0.4 MG/ML VIAL IM PRN (01:00)
[2023-03-19] MEDS ORDERED: POLYETHYLENE GLYCOL (HEALTHYLAX) 3350 17 GM PACKET PO PRN (01:00)
[2023-03-19] MEDS ORDERED: NICOTINE POLACRILEX 2 MG GUM BUC PRN (01:05)
[2023-03-19] MEDS: PRENATAL VITAMINS W/ FOLIC ACID TABLET (FP) PO SCH (09:57)
[2023-03-19] MEDS: SERTRALINE HCL 50 MG TABLET (FP) PO SCH (09:59)
[2023-03-19] MEDS: QUEtiapine FUMARATE 200 MG TABLET PO SCH (10:00)
[2023-03-19] MEDS: IBUPROFEN 600 MG TABLET (FP) PO PRN (10:08)
[2023-03-19] MEDS ORDERED: MELATONIN 5 MG TABLETS PO SCH (22:00)
[2023-03-19] MEDS: THIAMINE HCL 100 MG TABLET (FP) PO SCH (22:13)
[2023-03-19] MEDS: QUEtiapine FUMARATE 400 MG TABLET PO SCH (22:45)
[2023-03-20 14:35] LABS: POTASSIUM 4.1 mmol/L (3.5-5.1)
[2023-03-20 14:36] LABS: HEMATOCRIT 40.2 % (32.4-45.2); MCH 28.1 pg (25.7-33.7); MCHC 32.3 g/dl (32.0-36.0); MEAN CELL VOLUME 86.8 fl (80-96); MEAN PLT VOLUME 9.8 fl (7.5-11.1); PLATELET COUNT 199 10^3/uL (134-434); RBC 4.63 M/mm3 (3.60-5.2); RDW 15.1 % (11.6-15.6); WHITE BLOOD COUNT 6.4 K/mm3 (4.0-10.0)
[2023-03-20 15:03] LABS: ALBUMIN 3.1 g/dl (3.4-5.0); BLOOD UREA NITROGEN 12.8 mg/dL (7-18); CALCIUM 9.5 mg/dL (8.5-10.1)
[2023-03-20 15:06] LABS: CREATININE 0.6 mg/dL (0.55-1.3)
[2023-03-20 15:07] LABS: TOT PROT 6.1 g/dl (6.4-8.2)
[2023-03-20 15:08] LABS: BILIRUBIN,TOTAL 0.2 mg/dL (0.2-1)
[2023-03-21] MEDS ORDERED: ALBUTEROL SO4 HFA INHALER IH PRN (10:38)
[2023-03-21] MEDS: BRIMONIDINE TARTRATE 0.2% OPHTHALMIC 5 ML BOTTLE OU SCH (13:16)
[2023-03-21] MEDS: diazePAM 5 MG TABLET PO SCH (17:17)
[2023-03-21] MEDS: LATANOPROST 0.005% OPHTH SOLN 2.5ML BOTTLE OU SCH (22:09)
[2023-03-22] MEDS: diazePAM 5 MG TABLET PO SCH (05:23)
[2023-03-23] MEDS: diazePAM 5 MG TABLET PO SCH (05:48)
[2023-03-24] MEDS: diazePAM 5 MG TABLET PO ONE (05:32)
[2023-03-24 09:59] VITALS: BP 127/80; PULSE 79; RESP 18; TEMP 97.5
== END 2023-03-24 11:08 | disposition home or self-care (01) | DRG 774 ==
LOC: YASAS 21:03 → Y6N 03-19 01:48
PROVIDERS: ADMIT Allergy & Immunology; ATTEND Allergy & Immunology
PROC: HZ2ZZZZ Detoxification Services for Substance Abuse Treatment (ICD-10-PCS; principal; 2023-03-19)
DX: F10.230 Alcohol dependence with withdrawal, uncomplicated (principal); F14.20 Cocaine dependence, uncomplicated; F17.210 Nicotine dependence, cigarettes, uncomplicated; F25.1 Schizoaffective disorder, depressive type; F19.282 Other psychoactive substance dependence with psychoactive substance-induced sleep disorder; U07.1 COVID-19; H40.10X0 Unspecified open-angle glaucoma, stage unspecified; J45.20 Mild intermittent asthma, uncomplicated; E11.9 Type 2 diabetes mellitus without complications; M17.0 Bilateral primary osteoarthritis of knee; Z86.11 Personal history of tuberculosis; Z62.810 Personal history of physical and sexual abuse in childhood; Z91.410 Personal history of adult physical and sexual abuse; Z63.0 Problems in relationship with spouse or partner
CPT/HCPCS: 36415; 80053; 80307; 83036; 85027; 86780; 87635